=== PATIENT | female | born 1940 | race Two or more races ===

== ENCOUNTER 2020-09-19 04:15 | Inpatient (IN) | payer BC ==
[~2020-09-19] VITALS: Ht 160 cm; Wt 79.4 kg
[2020-09-19] VITALS (22 sets, daily range): BP systolic 59–178; BP diastolic 35–95
[2020-09-19] MEDS ORDERED: Enoxaparin 100mg Inj SUBQ ONE (04:30)
[2020-09-19] MEDS ORDERED: cefTRIAXone 1 GM in NS 55 ML IV ONE (04:30)
[2020-09-19] MEDS ORDERED: dexAMETHasone 10mg/ml Inj IV ONE (04:30)
[2020-09-19] MEDS ORDERED: Albuterol ud Inhalation HHN ONE (04:30)
[2020-09-19] MEDS ORDERED: Azithromycin 500 MG in NS 275 ML IVPB ONE (04:30)
--- NOTE | 2020-09-19 04:30 | Emergency Room Report ---
History of Present Illness General Chief Complaint: Dyspnea/Respdistress Source: Patient, Medical Record, EMS Present Illness HPI This is a 80-year-old female with history of high blood pressure. She was recently diagnosed with Covid last week. She had Covid symptom for about 2 wee ks. She was admitted to [facility] with Covid pneumonia and pulse oxing at 86% on room air. 3 weeks prior, she had a fall and sustained a trimalleolar right ankle fracture. She presents tonight with chief complaint of shortness of breath. At the long term, she had respiratory distress and oxygenation was 71% on room air. 911 was called. She was placed on oxygen and sent here. Patient still has coughing. past subjective fever and chills. No chest pain. Worse with exertion. Better with rest. Allergies: Coded Allergies: No Known Allergies (Unverified , 09/19/20) COVID-19 Screening Contact w/high risk pt: Yes Experienced COVID-19 symptoms?: Yes COVID-19 Testing performed RECORDS ASSISTANT: Yes COVID-19 Screening: Positive COVID-19 COVID-19 Testing Source[facility] Patient History Past Medical History: see triage record, old chart reviewed, HTN Past Surgical History: other Pertinent Family History: none Social History: Denies: smoking Now: No Immunizations: other Reviewed Nursing Documentation: PMH: Agreed; PSxH: Agreed Review of Systems Constitutional: Reports: chills, fever Eye: Denies: eye pain, blurred vision ENT: Denies: ear pain, nose congestion, throat swelling Respiratory: Reports: cough, shortness of breath Cardiovascular: Denies: chest pain, palpitations Gastrointestinal: Denies: abdominal pain, diarrhea, nausea, vomiting Musculoskeletal: Denies: back pain, joint pain Skin: Denies: rash Neurological: Denies: headache, numbness Endocrine: Denies: increased thirst, increased urine Hematologic/Lymphatic: Denies: easy bruising All Other Systems: negative except mentioned in HPI Physical Exam Vital Signs Date Time Temp Pulse Resp B/P (MAP) Pulse Ox O2 Delivery O2 Flow Rate FiO2 09/19/20 04:18 100 20 72/32 (45) 96 Nasal Cannula 4.0 Vitals with hypoxia and hypotension. Repeat blood pressure is 92/49 Sp02 EP Interpretation: reviewed, abnormal General Appearance: alert, moderate distress, obese Head: normocephalic, atraumatic Eyes: bilateral eye PERRL, bilateral eye EOMI ENT: hearing grossly normal, normal pharynx Neck: full range of motion, supple, no meningismus Respiratory: chest non-tender, respiratory distress, decreased breath sounds, accessory muscle use, crackles Cardiovascular #1: regular rate, rhythm, no murmur Gastrointestinal: normal bowel sounds, non tender, no mass, no organomegaly, no bruit, non-distended Musculoskeletal: back normal, other - Right ankle in a splint Psychiatric: mood/affect normal Procedures Critical Care Time Critical Care Time Critical care is mandated in this patient who presented with shock from Covid pneumonia.. Patient require my urgent intervention to attenuate the risks of metabolic collapse which may lead to cardiovascular collapse and . Critical care time is 35 minutes excluding any reportable procedure. Critical care time included evaluation, multiple reevaluation, looking at old charts, interpreting laboratory and diagnostic data, discussing case with patient and family and consultants, and charting. Central Line Central Line : Consent: Verbal Central Line Lumen: triple Maximal Sterile Barrier Tech: yes cap, yes mask, yes sterile gown, yes sterile gloves, yes large sterile sheet, yes hand hygiene, yes chlorhexidine prep Central Line Postion: femoral (R) Anesthesia: Lidocaine cc's of anesthesia: 10 US Guided Line?: No Complications: none Central Line Post Position: sutured, good blood return Attempts: One Patient Tolerated: Well Complications: None Medical Decision Making Diagnostic Impression: Primary Impression: Septic shock Additional Impressions: Pneumonia due to COVID-19 virus Acute respiratory failure with hypoxia Anemia Qualified Codes: D64.9 - Anemia, unspecified Hyperglycemia due to type 2 diabetes mellitus Qualified Codes: E11.65 - Type 2 diabetes mellitus with hyperglycemia ER Course This patient presents with respirator stress and was in septic shock secondary to her Covid pneumonia. Patient does not require intubation. Oxygenation is 100% on nonrebreather. Pressors initiated. Patient will be admitted. Prognosis poor. I contacted Dr. Spencer for admission. EKG Diagnostic Results Troponin ordered: Yes Rate: tachycardiac Rhythm: NSR ST Segments: other - NSST changes ASA given to the pt in ED: Yes Rhythm Strip Diag. Results EP Interpretation: yes Rate: 91 Rhythm: NSR, no PVC's, no ectopy Chest X-Ray Diagnostic Results Chest X-Ray Diagnostic Results : Chest X-Ray Ordered: Yes # of Views/Limited/Complete: 1 View Indication: Shortness of Breath EP Interpretation: Yes Interpretation: no effusion, no pneumothorax, other - b/l interstitial infiltrates Impression: Other - b/l infiltrates Electronically Signed by: Lucho Reyes MD Last Vital Signs Date Time Temp Pulse Resp B/P (MAP) Pulse Ox O2 Delivery O2 Flow Rate FiO2 09/19/20 04:18 100 20 72/32 (45) 96 Nasal Cannula 4.0 Status: improved Disposition: ADMITTED INPATIENT Condition: Critical Lucho Reyes MD Sep 19, 2020 04:30
[2020-09-19] MEDS ORDERED: LEVOFLOXAC IV (04:37)
[2020-09-19] MEDS ORDERED: ZOFRAN4 M1 INJ (04:38)
[2020-09-19] MEDS ORDERED: ALBUTEROL2.5 MG/3 M INH (04:39)
[2020-09-19] MEDS ORDERED: GUAIFENESIN DM118 M1 ORAL (04:40)
--- NOTE | 2020-09-19 04:40 | NUR ---
ED Nurse Note: Pt brought in by ambulance RA 58 from [facility]. Per EMS she was hypoxic on RA but SPO2 92% on 4L NC. Her BP in the field was 70/40. On assement she is axox4, pale, moist, grunting with respirations. SPO2 was 92% on NC and simple mask so started her 15L NRB. SPO2 100%. Pt had 500mL bolus in the field. She is hypotensive the lowest 56/25. Labs sent, ekg done, breathign trx given by RT, fluid bolus administered. Addendum: 09/19/20 at 0646 by GUSTABO Pt has a plaster cast on her right ankle from a previous injury. cathode maker intact, no numbness, tingling or swelling noted.
[2020-09-19] MEDS ORDERED: LOSARTAN POTASS50 MG ORAL (04:41)
[2020-09-19] MEDS ORDERED: ACETAMINOPHEN500 M5 ORAL (04:42)
[2020-09-19 04:53] LABS: HEMATOCRIT 35.6 % (37.0-47.0); HEMOGLOBIN 11.9 G/DL (12.0-16.0); MEAN CORPUSCULAR VOLUME 91 FL (80-99); PLATELET COUNT 162 K/UL (150-450); RED BLOOD COUNT 3.92 M/UL (4.20-5.40); WHITE BLOOD COUNT 12.5 K/UL (4.8-10.8)
[2020-09-19] MEDS ORDERED: Lidocaine 1% MPF 10mg/ml 5ml ONE (05:09)
[2020-09-19] MEDS ORDERED: Lidocaine 1% Plain 30 ml INJ ONE ×2 (05:10→06:15)
[2020-09-19 05:12] LABS: CALCIUM 8.2 MG/DL (8.5-10.1); CREATININE 1.3 MG/DL (0.55-1.30); POTASSIUM 3.5 MMOL/L (3.5-5.1)
[2020-09-19 05:18] LABS: INR 1.5 (0.9-1.1); PARTIAL THROMBOPLASTIN TIME 33 SEC (23-33)
[2020-09-19] MEDS ORDERED: Levophed 4mg/4mL Inj IV ONE (05:25)
[2020-09-19 05:26] LABS: ALBUMIN 2.4 G/DL (3.4-5.0); ALBUMIN/GLOBULIN RATIO 0.6 (1.0-2.7); BILIRUBIN,TOTAL 0.5 MG/DL (0.2-1.0); CKMB 1.1 NG/ML (0.0-3.6)
--- NOTE | 2020-09-19 05:35 | Diagnostic Imaging Report ---
EXAM: XR Chest, 1 View CLINICAL HISTORY: TRAUMA TECHNIQUE: Frontal view of the chest. COMPARISON: No relevant prior studies available. FINDINGS: Lungs: Patchy airspace opacities bilaterally are present in a peripheral predominant distribution. Pleural space: Unremarkable. No pneumothorax. Heart: Unremarkable. No cardiomegaly. Mediastinum: Unremarkable. Bones/joints: Unremarkable. IMPRESSION: Findings of atypical pneumonia. No acute traumatic findings shown by x- ray.
[2020-09-19] MEDS ORDERED: Aspirin Baby 81mg ORAL ONE (05:45)
--- NOTE | 2020-09-19 05:51 | Diagnostic Imaging Report ---
EXAM: XR Right Ankle Complete, 3 or More Views CLINICAL HISTORY: TRAUMA TECHNIQUE: Frontal, lateral and oblique views of the right ankle. COMPARISON: No relevant prior studies available. FINDINGS: Bones/joints: Acute mildly displaced posterior malleolar fracture. Acute minimally displaced lateral malleolus fracture. No ankle mortise widening. No dislocation. Soft tissues: Mild soft tissue swelling. IMPRESSION: 1. Acute mildly displaced posterior malleolar fracture. 2. Acute minimally displaced lateral malleolus fracture.
--- NOTE | 2020-09-19 06:11 | Emergency Room Report ---
Sepsis Event Note Evaluation Current Stage of Sepsis: Septic Shock Possible Source: Pulmonary Focused Exam Allergies: Coded Allergies: No Known Allergies (Unverified , 09/19/20) Date Exam Occurred: Sep 19, 2020 Time Exam Occurred: 06:11 Laboratory Studies Laboratory Tests Test 09/19/20 04:26 White Blood Count 12.5 K/UL (4.8-10.8) H Red Blood Count 3.92 M/UL (4.20-5.40) L Hemoglobin 11.9 G/DL (12.0-16.0) L Hematocrit 35.6 % (37.0-47.0) L Mean Corpuscular Volume 91 FL (80-99) Mean Corpuscular Hemoglobin 30.3 PG (27.0-31.0) Mean Corpuscular Hemoglobin Concent 33.3 G/DL (32.0-36.0) Red Cell Distribution Width 12.0 % (11.6-14.8) Platelet Count 162 K/UL (150-450) Mean Platelet Volume 6.9 FL (6.5-10.1) Neutrophils (%) (Auto) % (45.0-75.0) Lymphocytes (%) (Auto) % (20.0-45.0) Monocytes (%) (Auto) % (1.0-10.0) Eosinophils (%) (Auto) % (0.0-3.0) Basophils (%) (Auto) % (0.0-2.0) Differential Total Cells Counted 100 Neutrophils % (Manual) 89 % (45-75) H Lymphocytes % (Manual) 8 % (20-45) L Monocytes % (Manual) 3 % (1-10) Eosinophils % (Manual) 0 % (0-3) Basophils % (Manual) 0 % (0-2) Band Neutrophils 0 % (0-8) Platelet Estimate Adequate Platelet Morphology Normal Red Blood Cell Morphology Normal Prothrombin Time 16.5 SEC (9.30-11.50) H Prothromb Time International Ratio 1.5 (0.9-1.1) H Activated Partial Thromboplast Time 33 SEC (23-33) D-Dimer > 35.20 mg/L FEU Sodium Level 137 MMOL/L (136-145) Potassium Level 3.5 MMOL/L (3.5-5.1) Chloride Level 102 MMOL/L (98-107) Carbon Dioxide Level 17 MMOL/L (21-32) L Anion Gap 18 mmol/L (5-15) H Blood Urea Nitrogen 14 mg/dL (7-18) Creatinine 1.3 MG/DL (0.55-1.30) Estimat Glomerular Filtration Rate 39.6 mL/min (>60) Glucose Level 283 MG/DL (74-106) H Lactic Acid Level 6.60 mmol/L (0.4-2.0) H Calcium Level 8.2 MG/DL (8.5-10.1) L Ferritin 491 NG/ML (8-388) H Total Bilirubin 0.5 MG/DL (0.2-1.0) Aspartate Amino Transf (AST/SGOT) 57 U/L (15-37) H Alanine Aminotransferase (ALT/SGPT) 38 U/L (12-78) Alkaline Phosphatase 69 U/L (46-116) Lactate Dehydrogenase 323 U/L (81-234) H Total Creatine Kinase 39 U/L (26-308) Creatine Kinase MB 1.1 NG/ML (0.0-3.6) Creatine Kinase MB Relative Index 2.8 Troponin I 0.239 ng/mL (0.000-0.056) C-Reactive Protein, Quantitative 2.6 mg/dL (0.00-0.90) H Pro-B-Type Natriuretic Peptide 540 pg/mL (0-125) H Total Protein 6.6 G/DL (6.4-8.2) Albumin 2.4 G/DL (3.4-5.0) L Globulin 4.2 g/dL Albumin/Globulin Ratio 0.6 (1.0-2.7) L Lipase 230 U/L (73-393) Vital Signs Last 24 Hour Vital Signs Date Time Temp Pulse Resp B/P (MAP) Pulse Ox O2 Delivery O2 Flow Rate FiO2 09/19/20 05:42 72/52 09/19/20 04:47 97.6 104 20 96/45 100 Non-Rebreather 15.0 09/19/20 04:40 95 26 Non-Rebreather 15.0 09/19/20 04:34 99 22 100 Non-Rebreather 15.0 100 96 24 100 09/19/20 04:18 100 20 72/32 (45) 96 Nasal Cannula 4.0 Respiratory Exam: Rhonchi Cardiovascular Exam: RRR Capillary Refill: Less Than 2 Seconds Peripheral Pulse: Weak Pulse Location: Femoral Skin Exam: Pallor Lucho Reyes MD Sep 19, 2020 06:11
--- NOTE | 2020-09-19 06:15 | NUR ---
ED Nurse Note: Dt pt's persistent hypotension, ER MD placed a tripel lumen central line in the right femoral groin. All lines are patent and can draw blood. Pt gave informed consent. Time out was preformed, steril technique was maintained. Pt now has vassopresser and BP is normotensive.
[2020-09-19 06:27] LABS: APPEARANCE,URINE SLIGHTLY CLOUDY; BILIRUBIN, URINE NEGATIVE (NEGATIVE); COLOR,URINE PALE YELLOW; GLUCOSE, URINE (UA) 1+ (NEGATIVE); KETONES,URINE NEGATIVE (NEGATIVE); LEUKOCYTE ESTERASE ,URINE 1+ (NEGATIVE); NITRITE,URINE NEGATIVE (NEGATIVE); PH,URINE 6.5 (4.5-8.0); PROTEIN,URINE 3+ (NEGATIVE); UROBILINOGEN,URINE NORMAL MG/DL (0.0-1.0)
--- NOTE | 2020-09-19 07:35 | NUR ---
ED Nurse Note: Pt BP 112/78. HR 90. Pt still has grungting on respirations. O2 sat 100% NRB.
[2020-09-19] MEDS ORDERED: Vancomycin 1.5gm/300ml Premix IVPB ONE (09:00)
--- NOTE | 2020-09-19 09:00 | Diagnostic Imaging Report ---
EXAM: US Duplex Bilateral Lower Extremities Veins CLINICAL HISTORY: DVT TECHNIQUE: Real-time duplex ultrasound scan of the bilateral lower extremity veins integrating B-mode two-dimensional vascular structure, Doppler spectral analysis, color flow Doppler imaging and compression. COMPARISON: No relevant prior studies available. FINDINGS: Right deep veins: No DVT in the right common femoral, femoral, proximal deep femoral or popliteal veins. The veins demonstrate normal color flow, are normally compressible, with normal phasic flow and/or augmentation response. The right posterior tibial and anterior tibial veins were not visualized due to overlying cast. Right superficial veins: No thrombus in the visualized right great saphenous vein. ----- Left deep veins: No DVT in the left common femoral, femoral, proximal deep femoral or popliteal veins. The veins demonstrate normal color flow, are normally compressible, with normal phasic flow and/or augmentation response. Left superficial veins: No thrombus in the visualized left great saphenous vein. IMPRESSION: No deep venous thrombosis of the bilateral lower extremities. The right posterior tibial and anterior tibial veins were not visualized due to overlying cast.
--- NOTE | 2020-09-19 09:44 | NUR ---
ED Nurse Note: Belongings list completed. Pt is 2&ox4, states she has no pain.
[2020-09-19] MEDS: Piperacillin/Tazobactam 3.375 GM in NS 110 ML IVPB SCH ×2 (10:14→22:55)
--- NOTE | 2020-09-19 11:10 | NUR ---
RESPIRATORY NOTE: POST ABG RESULT PT'S FIO2 WAS TITRATED FROM 100% NBR MASK TO 10LPM/50% VENTURI MASK. PT TOLERATING WELL. CURRENT SPO2 IS 96%. RN NOTIFIED.
--- NOTE | 2020-09-19 11:12 | NUR ---
ED Nurse Note: Pt placed 10L Venturi mask per RT Tanya O2 95%.
--- NOTE | 2020-09-19 13:29 | Consultation ---
DATE OF CONSULTATION: 09/19/2020 INFECTIOUS DISEASE CONSULTATION This consult is for coverage of Dr. Fuentes. CONSULTING PHYSICIAN: Bonilla Whelan MD. REASON FOR CONSULT: COVID-19 pneumonia and septic shock. HISTORY OF PRESENT ILLNESS: This is a 80-year-old female admitted today from a [place] [facility] facility. The patient was transferred to hospital with chest pain, shortness of breath, had COVID symptoms for two weeks according to ER doctor, had decrease in pulse oximetry and hypotension, elevation in troponin. The patient was put on Venturi mask. PAST MEDICAL HISTORY: Hypertension and right ankle fracture three weeks ago, this was trimalleolar fracture. ALLERGIES: No known drug allergies. MEDICATIONS: Getting vancomycin, dexamethasone, enoxaparin, Zosyn, Protonix, Zofran, Tylenol, Levophed. SOCIAL HISTORY: . REVIEW OF SYSTEMS: The patient is drowsy and not a source of history. PHYSICAL EXAMINATION: VITAL SIGNS: Temperature 98.2, pulse 87, blood pressure 118/79. GENERAL APPEARANCE: Seems to be obese. HEAD AND NECK: Getting oxygen by Venturi mask. HEART: Normal rate. LUNGS: Clear. ABDOMEN: Soft and nontender. EXTREMITIES: She has right leg is in the cast, no edema. LABORATORY DATA: Lactic acid is 3.8. Sodium 137, potassium 3.5, chloride 102, bicarb 17, BUN 14, creatinine 1.3, glucose 283. Troponin 0.239. WBC 12.5, hemoglobin 11.9, hematocrit 35.6, platelets 162. Chest x-ray, atypical pneumonia. Right ankle x-ray showed acute mildly displaced posterior malleolar fracture, acute minimally displaced lateral malleolus fracture. Venous duplex was negative for DVT. IMPRESSION: Sepsis with septic shock, has COVID-19 disease, has hypoxemia, hypertension, right ankle fracture, has diabetes mellitus with hyperglycemia, acidosis, elevation in troponin, obesity. RECOMMENDATION: Continue with current antibiotics, vancomycin, Zosyn, and dexamethasone. Case was discussed with the pharmacy. Remdesivir was not approved because of prolonged symptoms more than 10 days. At the end of my exam, I thank the primary doctor for involving me in the care of this patient. Bonilla Whelan M.D. DR: MAURICIO JOB#: [id number] CC: ERNESTO
--- NOTE | 2020-09-19 13:53 | NUR ---
ED Nurse Note: Pt transferred to hospital bed. No acute distress. A&ox4.
[2020-09-19] MEDS ORDERED: Albuterol 90mcg Inhaler 8gm INH PRN (14:15)
--- NOTE | 2020-09-19 14:20 | Pulmonology Progress Note ---
Subjective ROS Limited/Unobtainable: No Allergies: Coded Allergies: No Known Allergies (Unverified , 09/19/20) Objective Last 24 Hour Vital Signs Date Time Temp Pulse Resp B/P (MAP) Pulse Ox O2 Delivery O2 Flow Rate FiO2 09/19/20 13:52 98.2 89 20 118/90 99 Venturi Mask 10.0 100 09/19/20 11:32 122/93 09/19/20 11:31 98.2 85 21 117/76 98 Venturi Mask 10.0 09/19/20 10:14 114/81 09/19/20 09:45 118/79 09/19/20 09:43 98.2 87 24 115/58 100 Non-Rebreather 15.0 100 09/19/20 08:59 108/87 09/19/20 08:30 98.2 90 24 118/57 99 Non-Rebreather 15.0 100 09/19/20 07:33 112/78 09/19/20 06:43 106/60 09/19/20 06:09 89/59 09/19/20 06:00 98.2 94 24 102/54 100 Non-Rebreather 15.0 100 09/19/20 05:45 95 24 98/35 99 Non-Rebreather 15.0 09/19/20 05:42 72/52 09/19/20 05:15 97.6 98 24 72/44 100 Non-Rebreather 15.0 100 09/19/20 05:00 95 22 59/37 100 Non-Rebreather 15.0 09/19/20 04:47 97.6 104 20 96/45 100 Non-Rebreather 15.0 09/19/20 04:40 95 26 Non-Rebreather 15.0 09/19/20 04:34 99 22 100 Non-Rebreather 15.0 100 96 24 100 09/19/20 04:18 100 20 72/32 (45) 96 Nasal Cannula 4.0 Intake and Output 09/18/20 09/19/20 19:00 07:00 Intake Total 1305 ml Balance 1305 ml Intake IV Total 1305 ml Laboratory Tests 09/19/20 04:26: White Blood Count 12.5H, Red Blood Count 3.92L, Hemoglobin 11.9L, Hematocrit 35.6L, Mean Corpuscular Volume 91, Mean Corpuscular Hemoglobin 30.3, Mean Corpuscular Hemoglobin Concent 33.3, Red Cell Distribution Width 12.0, Platelet Count 162, Mean Platelet Volume 6.9, Neutrophils (%) (Auto) , Lymphocytes (%) (Auto) , Monocytes (%) (Auto) , Eosinophils (%) (Auto) , Basophils (%) (Auto) , Differential Total Cells Counted 100, Neutrophils % (Manual) 89H, Lymphocytes % (Manual) 8L, Monocytes % (Manual) 3, Eosinophils % (Manual) 0, Basophils % (Manual) 0, Band Neutrophils 0, Platelet Estimate Adequate, Platelet Morphology Normal, Red Blood Cell Morphology Normal, Prothrombin Time 16.5H, Prothromb Time International Ratio 1.5H, Activated Partial Thromboplast Time 33, D-Dimer > 35.20H, Sodium Level 137, Potassium Level 3.5, Chloride Level 102, Carbon Dioxide Level 17L, Anion Gap 18H, Blood Urea Nitrogen 14, Creatinine 1.3, Estimat Glomerular Filtration Rate 39.6, Glucose Level 283H, Lactic Acid Level 6.60H, Calcium Level 8.2L, Ferritin 491H, Total Bilirubin 0.5, Aspartate Amino Transf (AST/SGOT) 57H, Alanine Aminotransferase (ALT/SGPT) 38, Alkaline Phosphatase 69, Lactate Dehydrogenase 323H, Total Creatine Kinase 39, Creatine Kinase MB 1.1, Creatine Kinase MB Relative Index 2.8, Troponin I 0.239H, C- Reactive Protein, Quantitative 2.6H, Pro-B-Type Natriuretic Peptide 540H, Total Protein 6.6, Albumin 2.4L, Globulin 4.2, Albumin/Globulin Ratio 0.6L, Lipase 230 09/19/20 05:55: Urine Color Pale yellow, Urine Appearance Slightly cloudy, Urine pH 6.5, Urine Specific Heth 1.010, Urine Protein 3+H, Urine Glucose (UA) 1+H, Urine Ketones Negative, Urine Blood 2+H, Urine Nitrite Negative, Urine Bilirubin Negative, Urine Urobilinogen Normal, Urine Leukocyte Esterase 1+H, Urine RBC 2-4H, Urine WBC 0-2, Urine Squamous Epithelial Cells Occasional, Urine Bacteria Few, Urine Hyaline Casts 2-4H 09/19/20 06:40: Lactic Acid Level 3.80H 09/19/20 10:19: Arterial Blood pH 7.380, Arterial Blood Partial Pressure CO2 28.8L, Arterial Blood Partial Pressure O2 301.0H, Arterial Blood HCO3 16.7*L, Arterial Blood Oxygen Saturation 99.2, Arterial Blood Base Excess -7.1L, Huey Test Positive Current Medications Medications (Trade) Dose Ordered Sig/Aura Route PRN Reason Start Time Stop Time Status Last Admin Dose Admin Acetaminophen (Tylenol) 650 mg Q4H PRN ORAL Mild Pain (Pain Scale 1-3) 09/19/20 08:15 10/19/20 08:14 Acetaminophen (Tylenol) 650 mg Q4H PRN ORAL Temp >100.5 09/19/20 08:45 10/19/20 08:44 Dexamethasone Sodium Phosphate (Decadron 4mg/ml vial) 6 mg DAILY IVP 09/20/20 09:00 09/28/20 09:01 Enoxaparin Sodium (Lovenox) 40 mg Q12HR SUBQ 09/19/20 21:00 12/18/20 20:59 Norepinephrine Bitartrate 8 mg/ Sodium Chloride 250 ml @ 0 mls/hr Q24H IV 09/19/20 05:45 09/22/20 05:44 09/19/20 05:42 Ondansetron HCl (Zofran) 4 mg Q6H PRN ORAL Nausea & Vomiting 09/19/20 08:15 10/19/20 08:14 Pantoprazole (Protonix) 40 mg DAILY ORAL 09/19/20 09:00 10/19/20 08:59 09/19/20 08:59 Piperacillin Sod/ Tazobactam Sod 3.375 gm/Sodium Chloride 110 ml @ 27.5 mls/hr EVERY 8 HOURS IVPB 09/19/20 10:00 09/24/20 09:59 09/19/20 10:14 Vancomycin HCl (Vanco pharmacy to dose) 1 ea DAILY PRN MISC Per rx protocol 09/19/20 08:15 10/19/20 08:14 Vancomycin HCl 1 gm/Dextrose 275 ml @ 183.708 mls/hr Q24H IVPB 09/20/20 10:00 09/25/20 09:59 Assessment/Plan Assessment/Plan Pulmonary Consultation SUBJECTIVE: HPI: Patient is a 80-year-old woman with past history of Hypertension, recent right ankle fracture admitted with Covid Pneumonia. She complained of chest pain, shortness of breath, worsening over two weeks,noted to be hypoxic and hypotensive, centralline placed in the ED, elevation in troponin noted. Past Medical History: Hypertension and trimalleilar right ankle fracture three weeks ago. Allergies: No known drug allergies. Medications noted SH: NC, . FH: NC ROS: Negative aside from above,poor historian OBJECTIVE: Vital Signs: Noted PE: GENERAL: Comfortable on FMO2, obese. 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 Sodium 137, potassium 3.5, chloride 102, bicarb 17, BUN 14, creatinine 1.3, glucose 283. Troponin 0.239. WBC 12.5, hemoglobin 11.9, hematocrit 35.6, platelets 162. Imaging: Chest x-ray:Bilateralpatchy infiltartes. Right ankle x-ray showed acute mildly displaced posterior malleolar fracture, acute minimally displaced lateral malleolus fracture. Venous duplex was negative for DVT. Impression: Covid 19 Pneumonia Hypoxic Respiratory Failure Possible sepsis Elevated Troponin Diabetes Previous Hypertension Recent right ankle fracture, Obesity Plan: Antibiotics/AntiviralsperID Remdesivir was not indicated per ID Dexamethazone O2PRN BD IVF PRN PPX ASSOCIATE MEDICAL DIRECTOR Medications Monitor labs Gilberto Aragon MD Sep 19, 2020 14:20
[2020-09-19] MEDS ORDERED: Solu-MEDROL 125mg Inj ONE (14:40)
--- NOTE | 2020-09-19 15:48 | NUR ---
ED Nurse Note: Pt lying in bed. No complaints or distress at this time. She is alert and orientedx4.
--- NOTE | 2020-09-19 18:10 | NUR ---
ED Nurse Note: New Levophed bottle initiated. Pt BP 123/82. Pt is alert and ox4.
--- NOTE | 2020-09-19 19:12 | NUR ---
HAND-OFF: Report given to Grace MEDEL.
--- NOTE | 2020-09-19 20:00 | NUR ---
ED Nurse Note: pt received from GIANFRANCO Simons in bed with venturi mask on, oxygen saturation is within normal limits. pt continues to have levophed infusing into femoral central line site. no acute distress is noted at this time. pt is beninese speaking but alert and awake, able to follow commands and make her needs known. will continue to monitor pt and prepare for admission.
[2020-09-19] MEDS: Enoxaparin 40mg Inj SUBQ SCH (21:10)
--- NOTE | 2020-09-19 21:34 | NUR ---
ED Nurse Note: report given to GIANFRANCO Walls
--- NOTE | 2020-09-19 22:00 | NUR ---
ED Nurse Note: pt transported to ICU per hospital FRANKLIN ji
--- NOTE | 2020-09-19 22:10 | NUR ---
NURSE NOTES: RECEIVED THE PATIENT FROM ER NURSE VIA HOSPITAL BED. PATIENT ALERT, ORIENTED X3, DENIED PAIN, ON VENTURI MASK 10LPM, RESPIRATION REGULAR, DENIED SOB, O2 SATURATION 96% NOTED, ABDOMEN SOFT, NO N/V STATUS, TLC TO RIGHT FEMORAL, PPL TO LEFT FA AND RIGHT AC, INTACT AND PATENT, ONGOING LEVOPHED 10MCG/MIN VIA RIGHT FEMORAL TLC, PROVIDED CALL LIGHT WITHIN REACH, MADE LOWER BED POSITION, ON BED ALARM AND LOCKED, WILL CONTINUE TO MONITOR.
[2020-09-20] VITALS (31 sets, daily range): BP systolic 101–152; BP diastolic 47–73
--- NOTE | 2020-09-20 01:00 | NUR ---
NURSE NOTES: PATIENT AWOKE, DENIED PAIN OR SOB, ONGOING LEVOPHED 4MCG/MIN VIA TLC, WILL CONTINUE TO MONITOR.
--- NOTE | 2020-09-20 03:30 | NUR ---
NURSE NOTES: PATIENT ASLEEP, VSS, ONGOING LEVOPHED 2MCG/MIN, WILL CONTINUE TO MONITOR.
--- NOTE | 2020-09-20 05:45 | NUR ---
NURSE NOTES: BP 125/67 MMHG, TURNED LEVOPHED DRIP OFF AT THIS TIME, PATIENT ALERT, ORIENTED, DENIED RIGHT LEG NUMBNESS OR TINGLING, ABLE TO MOVE TOES, WARM AND DRIED SKIN STATUS, WILL CONTINUE PLAN OF CARE.
[2020-09-20] MEDS: Piperacillin/Tazobactam 3.375 GM in NS 110 ML IVPB SCH ×3 (05:48→21:32)
--- NOTE | 2020-09-20 07:30 | NUR ---
NURSE HAND-OFF REPORT: Latest Vital Signs: Temperature 97.4 , Pulse 85 , B/P 119 /55 , Respiratory Rate 27 , O2 SAT 89 , Venturi Mask, O2 Flow Rate 10.0 . Vital Sign Comment: EKG Rhythm: Sinus Rhythm Rhythm change?: N MD Notified?: - MD Response: Latest Lozada Fall Score: 60 Fall Risk: High Risk Safety Measures: Call light , Bed Alarm Zone 1, Side Rails Side Rails x3, Bed position Low and Locked. Fall Precautions: Yellow Socks Door Sign Patient Fall Education Report given to GIANFRANCO SEXTON.
--- NOTE | 2020-09-20 07:31 | NUR ---
NURSE NOTES: Report received from Titi Ortega RN. Patient is alert and oriented x3-4. Mainly Kiswahili speaking with little Vietnamese for simple communication. 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 On Venturi 10L. O2 sat 98-99%. Dry periodic cough noted. Kept NPO as ordered. Voids on bedpan. Right lower foot splint noted for previous ankle fx. Right femoral TLC, right AC G20, and left FA G 20 patent and asymptomatic. Off Levophed at 0545 as per production shift supervisor. Bed in lowest position. Side rails x 3. Call light within reach. Will resume plan of care.
--- NOTE | 2020-09-20 07:53 | General Progress Note ---
Subjective ROS Limited/Unobtainable: No Constitutional: Reports: malaise, weakness HEENT: Reports: no symptoms Cardiovascular: Reports: no symptoms Respiratory: Reports: cough, shortness of breath Gastrointestinal/Abdominal: Reports: no symptoms Genitourinary: Reports: no symptoms Neurologic/Psychiatric: Reports: no symptoms Endocrine: Reports: no symptoms Hematologic/Lymphatic: Reports: no symptoms Allergies: Coded Allergies: No Known Allergies (Unverified , 09/19/20) All Systems: reviewed and negative except above Subjective no events. bp improved. off pressors. remains on venti mask. more comfortable. Objective Last 24 Hour Vital Signs Date Time Temp Pulse Resp B/P (MAP) Pulse Ox O2 Delivery O2 Flow Rate FiO2 09/20/20 07:00 85 27 119/55 (76) 89 09/20/20 06:00 81 28 101/60 (74) 97 09/20/20 05:45 75 9 125/67 (86) 99 09/20/20 05:45 125/67 09/20/20 05:30 74 20 118/58 (78) 99 09/20/20 05:00 75 14 133/65 (87) 99 09/20/20 05:00 133/65 09/20/20 04:30 76 23 141/64 (89) 100 09/20/20 04:00 77 09/20/20 04:00 135/62 09/20/20 04:00 Venturi Mask 10.0 09/20/20 04:00 97.4 77 22 135/62 (86) 99 09/20/20 03:30 77 22 130/61 (84) 95 09/20/20 03:00 132/60 09/20/20 03:00 83 23 132/60 (84) 98 09/20/20 02:30 77 26 138/62 (87) 98 09/20/20 02:00 143/73 09/20/20 02:00 81 24 143/73 (96) 100 09/20/20 01:30 77 21 144/66 (92) 98 09/20/20 01:00 145/66 09/20/20 01:00 76 23 145/66 (92) 99 09/20/20 00:30 82 22 126/65 (85) 99 09/20/20 00:00 152/57 09/20/20 00:00 Venturi Mask 10.0 09/20/20 00:00 98.0 80 30 152/57 (88) 90 09/20/20 00:00 95 Venturi Mask 40 09/19/20 23:45 80 21 145/70 (95) 95 09/19/20 23:30 79 18 149/63 (91) 94 09/19/20 23:23 80 09/19/20 23:15 76 26 137/64 (88) 95 09/19/20 23:06 76 25 163/70 (101) 96 09/19/20 23:00 79 26 143/66 (91) 96 09/19/20 23:00 143/66 09/19/20 22:45 80 20 152/66 (94) 94 09/19/20 22:45 97.5 95 20 152/66 (94) 94 09/19/20 22:30 82 24 154/66 (95) 95 09/19/20 22:30 154/66 09/19/20 22:26 87 09/19/20 22:26 Venturi Mask 10.0 09/19/20 22:23 86 178/83 09/19/20 22:23 80 24 112/95 (101) 97 09/19/20 22:21 87 09/19/20 22:15 163/65 09/19/20 22:14 84 28 163/65 (97) 96 09/19/20 21:10 180/83 09/19/20 20:18 78 27 178/83 98 Venturi Mask 10.0 50 09/19/20 20:18 178/83 09/19/20 18:12 98.2 84 16 136/86 97 Venturi Mask 10.0 50 09/19/20 17:55 142/85 09/19/20 16:53 145/99 09/19/20 16:52 98.2 88 17 134/74 99 Venturi Mask 10.0 50 09/19/20 15:47 98.2 83 17 130/76 100 Venturi Mask 10.0 50 09/19/20 15:45 126/73 09/19/20 13:52 98.2 89 20 118/90 99 Venturi Mask 10.0 100 09/19/20 13:30 115/76 09/19/20 11:32 122/93 09/19/20 11:31 98.2 85 21 117/76 98 Venturi Mask 10.0 09/19/20 10:14 114/81 09/19/20 09:45 118/79 09/19/20 09:43 98.2 87 24 115/58 100 Non-Rebreather 15.0 100 09/19/20 08:59 108/87 09/19/20 08:30 98.2 90 24 118/57 99 Non-Rebreather 15.0 100 Intake and Output 09/19/20 09/20/20 19:00 07:00 Intake Total 201.435 ml Balance 201.435 ml Intake IV Total 201.435 ml # Voids 1 2 Laboratory Tests 09/19/20 10:19: Arterial Blood pH 7.380, Arterial Blood Partial Pressure CO2 28.8L, Arterial Blood Partial Pressure O2 301.0H, Arterial Blood HCO3 16.7*L, Arterial Blood Oxygen Saturation 99.2, Arterial Blood Base Excess -7.1L, Huey Test Positive 09/20/20 00:40: Lactic Acid Level 2.30H 09/20/20 06:46: Lactic Acid Level [Pending], White Blood Count [Pending], Red Blood Count [Pending], Hemoglobin [Pending], Hematocrit [Pending], Mean Corpuscular Volume [Pending], Mean Corpuscular Hemoglobin [Pending], Mean Corpuscular Hemoglobin Concent [Pending], Red Cell Distribution Width [Pending], Platelet Count [Pending], Mean Platelet Volume [Pending], Neutrophils (%) (Auto) [Pending], Lymphocytes (%) (Auto) [Pending], Monocytes (%) (Auto) [Pending], Eosinophils (%) (Auto) [Pending], Basophils (%) (Auto) [Pending], Sodium Level [Pending], Potassium Level [Pending], Chloride Level [Pending], Carbon Dioxide Level [Pending], Blood Urea Nitrogen [Pending], Creatinine [Pending], Estimat Glomerular Filtration Rate [Pending], Glucose Level [Pending], Calcium Level [Pending], Total Bilirubin [Pending], Aspartate Amino Transf (AST/SGOT) [Pending ], Alanine Aminotransferase (ALT/SGPT) [Pending], Alkaline Phosphatase [Pending], Troponin I [Pending], Pro-B-Type Natriuretic Peptide [Pending], Total Protein [Pending], Albumin [Pending], Globulin [Pending] Height (Feet): 5 Height (Inches): 3.00 Weight (Pounds): 175 General Appearance: WD/WN, alert Neck: supple Cardiovascular: regular rhythm Respiratory/Chest: lungs clear, no respiratory distress Abdomen: normal bowel sounds, non tender, soft, no organomegaly Neurologic: glass breaker II-XII grossly normal, alert, responsive Assessment/Plan Problem List: (1) Pneumonia due to COVID-19 virus ICD Codes: U07.1 - COVID-19; J12.82 - Pneumonia due to coronavirus disease 2019 SNOMED: 992099283609743714 (2) Hyperglycemia due to type 2 diabetes mellitus ICD Codes: E11.65 - Type 2 diabetes mellitus with hyperglycemia; R65.21 - Severe sepsis with septic shock SNOMED: 283243429355783, 28806722 Qualifiers: Qualified Codes: E11.65 - Type 2 diabetes mellitus with hyperglycemia (3) Acute respiratory failure with hypoxia ICD Codes: J96.01 - Acute respiratory failure with hypoxia; J12.82 - Pneumonia due to coronavirus disease 2019 SNOMED: 74026563, 906018516 (4) Anemia ICD Codes: D64.9 - Anemia, unspecified SNOMED: 890194514, 853392272 Qualifiers: Qualified Codes: D64.9 - Anemia, unspecified (5) Septic shock ICD Codes: A41.9 - Sepsis, unspecified organism; R65.21 - Severe sepsis with septic shock SNOMED: 09667054, 018701032 Status: stable Assessment/Plan: cont iv pressors as needed cont decadron iv abx for pna dvt/stress ulcer prophylaxis resp rx wean o2 as able cont icu care guarded Wisam Jenkins MD Sep 20, 2020 07:53
[2020-09-20 07:54] LABS: BASOPHILS % (AUTO) 0.9 % (0.0-2.0); HEMATOCRIT 32.9 % (37.0-47.0); LYMPHOCYTES % (AUTO) 14.2 % (20.0-45.0); MEAN CORPUSCULAR VOLUME 89 FL (80-99); MONOCYTES % (AUTO) 11.9 % (1.0-10.0); PLATELET COUNT 205 K/UL (150-450); RED BLOOD COUNT 3.71 M/UL (4.20-5.40); RED CELL DISTRIBUTION WIDTH 12.1 % (11.6-14.8); WHITE BLOOD COUNT 12.1 K/UL (4.8-10.8)
--- NOTE | 2020-09-20 07:58 | NUR ---
NURSE NOTES: Dr Jenkins here to see the patient. Updated him with patient's current condition including Levo off at 0545. No new orders for now.
[2020-09-20 08:49] LABS: ALBUMIN 2.5 G/DL (3.4-5.0); ALBUMIN/GLOBULIN RATIO 0.6 (1.0-2.7); BILIRUBIN,TOTAL 0.5 MG/DL (0.2-1.0); CALCIUM 8.5 MG/DL (8.5-10.1); CREATININE 1.1 MG/DL (0.55-1.30); POTASSIUM 3.9 MMOL/L (3.5-5.1)
[2020-09-20] MEDS: Enoxaparin 40mg Inj SUBQ SCH ×2 (09:02→21:32)
--- NOTE | 2020-09-20 09:55 | NUR ---
NURSE NOTES: RT lowered FiO2 to 28%, 3L. O2 sat 92-94%, RR 16. Will continue to monitor.
[2020-09-20] MEDS: Vancomycin 1gm/D5W 275ml IVPB SCH ×2 (10:28)
--- NOTE | 2020-09-20 11:08 | Consultation ---
History of Present Illness General Date patient seen: Sep 20, 2020 Reason for Hospitalization: Dyspnea/Respdistress Present Illness HPI This is a 80-year-old female with multiple medical comorbidities who was recently diagnosed with Covid last week after having had Covid symptom for about 2 weeks. She was admitted to [facility] with Covid pneumonia and saturations in 80's on room air. 3 weeks prior, she had a fall and sustained a trimalleolar right ankle fracture. She presents tonight with chief complaint of shortness of breath from the shelter, she had respiratory distress and oxygenation was 71% on room air. 911 was called. She was placed on oxygen and sent here. Patient still has coughing. past subjective fever and chills. No chest pain. Worse with exertion. Better with rest. noted to have leukocytosis, lactic acidosis, septic and admitted to ICU for care. surgery called to evaluate and assist with care. Allergies: Coded Allergies: No Known Allergies (Unverified , 09/19/20) COVID-19 Screening Contact w/high risk pt: Yes Experienced COVID-19 symptoms?: Yes Coronavirus symptoms experienc: Fatigue, Shortness of Breath Medication History Scheduled Acetaminophen (Acetaminophen), 650 MG ORAL Q4H, (Reported) Levofloxacin in Dextrose 5 % (Levofloxacin 500 mg/100 ml-D5w), 500 MG IV DAILY, (Reported) Scheduled PRN Albuterol Sulfate* (Albuterol Sulfate Hhn*), 3 ML INH Q4H PRN for Shortness of Breath, (Reported) Guaifenesin/Dextromethorphan* (Guaifenesin Dm Syrup*), 5 ML ORAL Q6HR PRN for FOR COUGH, (Reported) Losartan Potassium* (Losartan Potassium*), 50 MG ORAL DAILY PRN for For High Blood Pressure, (Reported) Ondansetron (Zofran), 4 MG INJ Q6H PRN for Nausea & Vomiting, (Reported) Patient History Limited by: medical condition History Provided By: Medical Record, PMD Healthcare decision maker Resuscitation status Advanced Directive on File Past Medical/Surgical History Past Medical/Surgical History: (1) Septic shock (2) Anemia (3) Acute respiratory failure with hypoxia (4) Hyperglycemia due to type 2 diabetes mellitus (5) Pneumonia due to COVID-19 virus Review of Systems Review of Symptoms General ROS: no weight loss or fever Psychological ROS: no depression or mood changes, no memory loss Ophthalmic ROS: no visual changes or eye irritation ENT ROS: no nasal congestion, hearing loss, dizziness Allergy and Immunology ROS: no allergic symptoms or urticaria Hematological and Lymphatic ROS: no swollen glands, unusual bleeding or bruising Endocrine ROS: no polyuria, polydipsia, weight changes, temperature intolerance Respiratory ROS: no cough, shortness of breath, or wheezing Cardiovascular ROS: no chest pain or dyspnea on exertion Gastrointestinal ROS: denies abdominal pain, bright red blood in stool. Musculoskeletal ROS: no myalgias or arthralgias Neurological ROS: no TIA or stroke symptoms Dermatological ROS: no new or changing skin lesions, rashes or pruritis Physical Exam Physical Exam General appearance: alert, cooperative, no distress, appears stated age Head: Normocephalic, without obvious abnormality, atraumatic Eyes: conjunctivae/corneas clear. PERRL, EOM's intact. Fundi benign Throat: Lips, mucosa, and tongue normal. Teeth and gums normal Neck: supple, symmetrical, trachea midline, no adenopathy, thyroid: not enlarged, symmetric, no tenderness/mass/nodules, no carotid bruit and no JVD Lungs: clear to auscultation bilaterally Heart: regular rate and rhythm, S1, S2 normal, no murmur, click, rub or gallop Abdomen: soft, non-tender. Bowel sounds normal. No masses, no organomegaly Extremities: extremities see below Pulses: 2+ and symmetric Skin: Skin color, texture, turgor normal. No rashes or lesions Neurologic: Grossly normal Last 24 Hour Vital Signs Date Time Temp Pulse Resp B/P (MAP) Pulse Ox O2 Delivery O2 Flow Rate FiO2 09/20/20 10:00 73 21 123/55 (77) 93 09/20/20 09:55 3.0 28 09/20/20 09:55 Venturi Mask 3.0 09/20/20 09:00 73 26 110/58 (75) 99 09/20/20 08:00 10.0 40 09/20/20 08:00 98.2 83 26 121/55 (77) 99 09/20/20 08:00 Venturi Mask 10.0 09/20/20 07:00 85 27 119/55 (76) 89 09/20/20 06:00 81 28 101/60 (74) 97 09/20/20 05:45 75 9 125/67 (86) 99 09/20/20 05:45 125/67 09/20/20 05:30 74 20 118/58 (78) 99 09/20/20 05:00 75 14 133/65 (87) 99 09/20/20 05:00 133/65 09/20/20 04:30 76 23 141/64 (89) 100 09/20/20 04:00 77 09/20/20 04:00 135/62 09/20/20 04:00 Venturi Mask 10.0 09/20/20 04:00 97.4 77 22 135/62 (86) 99 09/20/20 03:30 77 22 130/61 (84) 95 09/20/20 03:00 132/60 09/20/20 03:00 83 23 132/60 (84) 98 09/20/20 02:30 77 26 138/62 (87) 98 09/20/20 02:00 143/73 09/20/20 02:00 81 24 143/73 (96) 100 09/20/20 01:30 77 21 144/66 (92) 98 09/20/20 01:00 145/66 09/20/20 01:00 76 23 145/66 (92) 99 09/20/20 00:30 82 22 126/65 (85) 99 09/20/20 00:00 152/57 09/20/20 00:00 Venturi Mask 10.0 09/20/20 00:00 98.0 80 30 152/57 (88) 90 09/20/20 00:00 95 Venturi Mask 40 09/19/20 23:45 80 21 145/70 (95) 95 09/19/20 23:30 79 18 149/63 (91) 94 09/19/20 23:23 80 09/19/20 23:15 76 26 137/64 (88) 95 09/19/20 23:06 76 25 163/70 (101) 96 09/19/20 23:00 79 26 143/66 (91) 96 09/19/20 23:00 143/66 09/19/20 22:45 80 20 152/66 (94) 94 09/19/20 22:45 97.5 95 20 152/66 (94) 94 09/19/20 22:30 82 24 154/66 (95) 95 09/19/20 22:30 154/66 09/19/20 22:26 87 09/19/20 22:26 Venturi Mask 10.0 09/19/20 22:23 86 178/83 09/19/20 22:23 80 24 112/95 (101) 97 09/19/20 22:21 87 09/19/20 22:15 163/65 09/19/20 22:14 84 28 163/65 (97) 96 09/19/20 21:10 180/83 09/19/20 20:18 78 27 178/83 98 Venturi Mask 10.0 50 09/19/20 20:18 178/83 09/19/20 18:12 98.2 84 16 136/86 97 Venturi Mask 10.0 50 09/19/20 17:55 142/85 09/19/20 16:53 145/99 09/19/20 16:52 98.2 88 17 134/74 99 Venturi Mask 10.0 50 09/19/20 15:47 98.2 83 17 130/76 100 Venturi Mask 10.0 50 09/19/20 15:45 126/73 09/19/20 13:52 98.2 89 20 118/90 99 Venturi Mask 10.0 100 09/19/20 13:30 115/76 09/19/20 11:32 122/93 09/19/20 11:31 98.2 85 21 117/76 98 Venturi Mask 10.0 Intake and Output 09/19/20 09/20/20 19:00 07:00 Intake Total 201.435 ml Balance 201.435 ml Intake IV Total 201.435 ml # Voids 1 2 Laboratory Tests Test 09/20/20 00:40 09/20/20 06:46 Lactic Acid Level 2.30 mmol/L (0.4-2.0) H 2.20 mmol/L (0.66-2.22) White Blood Count 12.1 K/UL (4.8-10.8) H Red Blood Count 3.71 M/UL (4.20-5.40) L Hemoglobin 11.0 G/DL (12.0-16.0) L Hematocrit 32.9 % (37.0-47.0) L Mean Corpuscular Volume 89 FL (80-99) Mean Corpuscular Hemoglobin 29.8 PG (27.0-31.0) Mean Corpuscular Hemoglobin Concent 33.5 G/DL (32.0-36.0) Red Cell Distribution Width 12.1 % (11.6-14.8) Platelet Count 205 K/UL (150-450) Mean Platelet Volume 6.5 FL (6.5-10.1) Neutrophils (%) (Auto) 73.0 % (45.0-75.0) Lymphocytes (%) (Auto) 14.2 % (20.0-45.0) L Monocytes (%) (Auto) 11.9 % (1.0-10.0) H Eosinophils (%) (Auto) 0.0 % (0.0-3.0) Basophils (%) (Auto) 0.9 % (0.0-2.0) Sodium Level 139 MMOL/L (136-145) Potassium Level 3.9 MMOL/L (3.5-5.1) Chloride Level 106 MMOL/L (98-107) Carbon Dioxide Level 22 MMOL/L (21-32) Anion Gap 11 mmol/L (5-15) Blood Urea Nitrogen 20 mg/dL (7-18) H Creatinine 1.1 MG/DL (0.55-1.30) Estimat Glomerular Filtration Rate 48.0 mL/min (>60) Glucose Level 141 MG/DL (74-106) #H Calcium Level 8.5 MG/DL (8.5-10.1) Total Bilirubin 0.5 MG/DL (0.2-1.0) Aspartate Amino Transf (AST/SGOT) 50 U/L (15-37) H Alanine Aminotransferase (ALT/SGPT) 57 U/L (12-78) Alkaline Phosphatase 63 U/L (46-116) Troponin I 0.930 ng/mL (0.000-0.056) Pro-B-Type Natriuretic Peptide 5578 pg/mL (0-125) H Total Protein 6.6 G/DL (6.4-8.2) Albumin 2.5 G/DL (3.4-5.0) L Globulin 4.1 g/dL Albumin/Globulin Ratio 0.6 (1.0-2.7) L Height (Feet): 5 Height (Inches): 3.00 Weight (Pounds): 175 Medications Current Medications Medications (Trade) Dose Ordered Sig/Aura Route PRN Reason Start Time Stop Time Status Last Admin Dose Admin Acetaminophen (Tylenol) 650 mg Q4H PRN ORAL Mild Pain (Pain Scale 1-3) 09/19/20 08:15 10/19/20 08:14 Acetaminophen (Tylenol) 650 mg Q4H PRN ORAL Temp >100.5 09/19/20 08:45 10/19/20 08:44 Albuterol Sulfate (Proventil MDI) 2 puff Q4H PRN INH Shortness of Breath 09/19/20 14:15 12/18/20 14:14 Dexamethasone Sodium Phosphate (Decadron 4mg/ml vial) 6 mg DAILY IVP 09/20/20 09:00 09/28/20 09:01 09/20/20 09:02 Enoxaparin Sodium (Lovenox) 40 mg Q12HR SUBQ 09/19/20 21:00 12/18/20 20:59 09/20/20 09:02 Norepinephrine Bitartrate 8 mg/ Sodium Chloride 250 ml @ 0 mls/hr Q24H IV 09/19/20 05:45 09/22/20 05:44 09/19/20 17:55 Ondansetron HCl (Zofran) 4 mg Q6H PRN ORAL Nausea & Vomiting 09/19/20 08:15 10/19/20 08:14 Pantoprazole (Protonix) 40 mg DAILY ORAL 09/19/20 09:00 10/19/20 08:59 09/20/20 09:02 Piperacillin Sod/ Tazobactam Sod 3.375 gm/Sodium Chloride 110 ml @ 27.5 mls/hr EVERY 8 HOURS IVPB 09/19/20 10:00 09/24/20 09:59 09/20/20 05:48 Vancomycin HCl (Vanco pharmacy to dose) 1 ea DAILY PRN MISC Per rx protocol 09/19/20 08:15 10/19/20 08:14 Vancomycin HCl 1 gm/Dextrose 275 ml @ 183.708 mls/hr Q24H IVPB 09/20/20 10:00 09/25/20 09:59 09/20/20 10:28 Assessment/Plan Problem List: (1) Septic shock Assessment & Plan: 80F septic shock, leukocytosis, lactic acidosis, covid prior, pna, ill appearing on oxygen hypoxic hypotensive placed on fluid resuscitation and pressors have been able to wean pressors since now off labs improving lactic acidosis resolving hold on further line for now cont iv fluids fx noted plain films noted plan ortho in future once edema resolve duplex noted cont respiratory support will follow with recs thank you Bones/joints: Acute mildly displaced posterior malleolar fracture. Acute minimally displaced lateral malleolus fracture. No ankle mortise widening. No dislocation. Soft tissues: Mild soft tissue swelling. IMPRESSION: 1. Acute mildly displaced posterior malleolar fracture. 2. Acute minimally displaced lateral malleolus fracture. Right deep veins: No DVT in the right common femoral, femoral, proximal deep femoral or popliteal veins. The veins demonstrate normal color flow, are normally compressible, with normal phasic flow and/or augmentation response. The right posterior tibial and anterior tibial veins were not visualized due to overlying cast. Right superficial veins: No thrombus in the visualized right great saphenous vein. ----- Left deep veins: No DVT in the left common femoral, femoral, proximal deep femoral or popliteal veins. The veins demonstrate normal color flow, are normally compressible, with normal phasic flow and/or augmentation response. Left superficial veins: No thrombus in the visualized left great saphenous vein. IMPRESSION: No deep venous thrombosis of the bilateral lower extremities. The right posterior tibial and anterior tibial veins were not visualized due to overlying cast. ICD Codes: A41.9 - Sepsis, unspecified organism; R65.21 - Severe sepsis with septic shock SNOMED: 27726727, 946608503 (2) Anemia ICD Codes: D64.9 - Anemia, unspecified SNOMED: 275820332, 280204477 Qualifiers: Qualified Codes: D64.9 - Anemia, unspecified (3) Acute respiratory failure with hypoxia ICD Codes: J96.01 - Acute respiratory failure with hypoxia; J12.82 - Pneumonia due to coronavirus disease 2018 SNOMED: 48122219, 874759315 (4) Hyperglycemia due to type 2 diabetes mellitus ICD Codes: E11.65 - Type 2 diabetes mellitus with hyperglycemia; R65.21 - Severe sepsis with septic shock SNOMED: 912856554096992, 19152280 Qualifiers: Qualified Codes: E11.65 - Type 2 diabetes mellitus with hyperglycemia (5) Pneumonia due to COVID-19 virus Assessment & Plan: Lungs: Patchy airspace opacities bilaterally are present in a peripheral predominant distribution. Pleural space: Unremarkable. No pneumothorax. Heart: Unremarkable. No cardiomegaly. Mediastinum: Unremarkable. Bones/joints: Unremarkable. IMPRESSION: Findings of atypical pneumonia. No acute traumatic findings shown by x- ray. ICD Codes: U07.1 - COVID-19; J12.82 - Pneumonia due to coronavirus disease 2018 SNOMED: [id number] [place] White Sep 20, 2020 11:08
--- NOTE | 2020-09-20 11:55 | NUR ---
NURSE NOTES: Assisted patient to use bedpan for small amount of urine. Patient is able to turn and reposition with help. Patient is tolerating 3L Venturi mask. O2 sat 92-97%. Oral care done.
--- NOTE | 2020-09-20 14:28 | NUR ---
NURSE NOTES: Assisted patient to place bedpan for smear of brown BM and urine. Daphney care done and changed the bottom sheet. Patient helps turning and repositioning.
--- NOTE | 2020-09-20 15:42 | Pulmonology Progress Note ---
Subjective ROS Limited/Unobtainable: No Allergies: Coded Allergies: No Known Allergies (Unverified , 09/19/20) All Systems: reviewed and negative except above Objective Last 24 Hour Vital Signs Date Time Temp Pulse Resp B/P (MAP) Pulse Ox O2 Delivery O2 Flow Rate FiO2 09/20/20 14:00 75 26 131/54 (79) 96 09/20/20 13:00 83 21 122/50 (74) 93 09/20/20 12:00 73 20 126/60 (82) 93 09/20/20 12:00 Venturi Mask 3.0 09/20/20 11:27 80 09/20/20 11:00 79 27 127/52 (77) 93 09/20/20 10:00 73 21 123/55 (77) 93 09/20/20 09:55 3.0 28 09/20/20 09:55 Venturi Mask 3.0 09/20/20 09:00 73 26 110/58 (75) 99 09/20/20 08:00 10.0 40 09/20/20 08:00 98.2 83 26 121/55 (77) 99 09/20/20 08:00 Venturi Mask 10.0 09/20/20 07:26 71 09/20/20 07:00 85 27 119/55 (76) 89 09/20/20 06:00 81 28 101/60 (74) 97 09/20/20 05:45 75 9 125/67 (86) 99 09/20/20 05:45 125/67 09/20/20 05:30 74 20 118/58 (78) 99 09/20/20 05:00 75 14 133/65 (87) 99 09/20/20 05:00 133/65 09/20/20 04:30 76 23 141/64 (89) 100 09/20/20 04:00 77 09/20/20 04:00 135/62 09/20/20 04:00 Venturi Mask 10.0 09/20/20 04:00 97.4 77 22 135/62 (86) 99 09/20/20 03:30 77 22 130/61 (84) 95 09/20/20 03:00 132/60 09/20/20 03:00 83 23 132/60 (84) 98 09/20/20 02:30 77 26 138/62 (87) 98 09/20/20 02:00 143/73 09/20/20 02:00 81 24 143/73 (96) 100 09/20/20 01:30 77 21 144/66 (92) 98 09/20/20 01:00 145/66 09/20/20 01:00 76 23 145/66 (92) 99 09/20/20 00:30 82 22 126/65 (85) 99 09/20/20 00:00 152/57 09/20/20 00:00 Venturi Mask 10.0 09/20/20 00:00 98.0 80 30 152/57 (88) 90 09/20/20 00:00 95 Venturi Mask 40 09/19/20 23:45 80 21 145/70 (95) 95 09/19/20 23:30 79 18 149/63 (91) 94 09/19/20 23:23 80 09/19/20 23:15 76 26 137/64 (88) 95 09/19/20 23:06 76 25 163/70 (101) 96 09/19/20 23:00 79 26 143/66 (91) 96 09/19/20 23:00 143/66 09/19/20 22:45 80 20 152/66 (94) 94 09/19/20 22:45 97.5 95 20 152/66 (94) 94 09/19/20 22:30 82 24 154/66 (95) 95 09/19/20 22:30 154/66 09/19/20 22:26 87 09/19/20 22:26 Venturi Mask 10.0 09/19/20 22:23 86 178/83 09/19/20 22:23 80 24 112/95 (101) 97 09/19/20 22:21 87 09/19/20 22:15 163/65 09/19/20 22:14 84 28 163/65 (97) 96 09/19/20 21:10 180/83 09/19/20 20:18 78 27 178/83 98 Venturi Mask 10.0 50 09/19/20 20:18 178/83 09/19/20 18:12 98.2 84 16 136/86 97 Venturi Mask 10.0 50 09/19/20 17:55 142/85 09/19/20 16:53 145/99 09/19/20 16:52 98.2 88 17 134/74 99 Venturi Mask 10.0 50 09/19/20 15:47 98.2 83 17 130/76 100 Venturi Mask 10.0 50 09/19/20 15:45 126/73 l Intake and Output 09/19/20 09/20/20 19:00 07:00 Intake Total 201.435 ml Balance 201.435 ml Intake IV Total 201.435 ml # Voids 1 2 Microbiology Date/Time Source Procedure Growth Status 09/19/20 05:55 Nasal Nares MRSA Culture - Final NO METHICILLIN RESISTANT STAPH AUREUS... Complete 09/19/20 04:26 Blood Blood Culture - Preliminary NO GROWTH AFTER 24 HOURS Resulted 09/19/20 04:05 Blood Blood Culture - Preliminary Resulted Laboratory Tests 09/20/20 00:40: Lactic Acid Level 2.30H 09/20/20 06:46: Lactic Acid Level 2.20, White Blood Count 12.1H, Red Blood Count 3.71L, Hemoglobin 11.0L, Hematocrit 32.9L, Mean Corpuscular Volume 89, Mean Corpuscular Hemoglobin 29.8, Mean Corpuscular Hemoglobin Concent 33.5, Red Cell Distribution Width 12.1, Platelet Count 205, Mean Platelet Volume 6.5, Neutrophils (%) (Auto) 73.0, Lymphocytes (%) (Auto) 14.2L, Monocytes (%) (Auto) 11.9H, Eosinophils (%) (Auto) 0.0, Basophils (%) (Auto) 0.9, Sodium Level 139, Potassium Level 3.9, Chloride Level 106, Carbon Dioxide Level 22, Anion Gap 11, Blood Urea Nitrogen 20H, Creatinine 1.1, Estimat Glomerular Filtration Rate 48.0, Glucose Level 141#H, Calcium Level 8.5, Total Bilirubin 0.5, Aspartate Amino Transf (AST/SGOT) 50H, Alanine Aminotransferase (ALT/SGPT) 57, Alkaline Phosphatase 63, Troponin I 0.930H, Pro-B-Type Natriuretic Peptide 5578H, Total Protein 6.6, Albumin 2.5L, Globulin 4.1, Albumin/Globulin Ratio 0.6L Current Medications Medications (Trade) Dose Ordered Sig/Aura Route PRN Reason Start Time Stop Time Status Last Admin Dose Admin Acetaminophen (Tylenol) 650 mg Q4H PRN ORAL Mild Pain (Pain Scale 1-3) 09/19/20 08:15 10/19/20 08:14 Acetaminophen (Tylenol) 650 mg Q4H PRN ORAL Temp >100.5 09/19/20 08:45 10/19/20 08:44 Albuterol Sulfate (Proventil MDI) 2 puff Q4H PRN INH Shortness of Breath 09/19/20 14:15 12/18/20 14:14 Dexamethasone Sodium Phosphate (Decadron 4mg/ml vial) 6 mg DAILY IVP 09/20/20 09:00 09/28/20 09:01 09/20/20 09:02 Enoxaparin Sodium (Lovenox) 40 mg Q12HR SUBQ 09/19/20 21:00 12/18/20 20:59 09/20/20 09:02 Norepinephrine Bitartrate 8 mg/ Sodium Chloride 250 ml @ 0 mls/hr Q24H IV 09/19/20 05:45 09/22/20 05:44 09/19/20 17:55 Ondansetron HCl (Zofran) 4 mg Q6H PRN ORAL Nausea & Vomiting 09/19/20 08:15 10/19/20 08:14 Pantoprazole (Protonix) 40 mg DAILY ORAL 09/19/20 09:00 10/19/20 08:59 09/20/20 09:02 Piperacillin Sod/ Tazobactam Sod 3.375 gm/Sodium Chloride 110 ml @ 27.5 mls/hr EVERY 8 HOURS IVPB 09/19/20 10:00 09/24/20 09:59 09/20/20 14:01 Vancomycin HCl (Vanco pharmacy to dose) 1 ea DAILY PRN MISC Per rx protocol 09/19/20 08:15 10/19/20 08:14 Vancomycin HCl 1 gm/Dextrose 275 ml @ 183.708 mls/hr Q24H IVPB 09/20/20 10:00 09/25/20 09:59 09/20/20 10:28 Assessment/Plan Assessment/Plan Pulmonary CCM Progress note SUBJECTIVE: HPI: Patient is a 80-year-old woman with past history of Hypertension, recent right ankle fracture admitted with Covid Pneumonia. She complained of chest pain, shortness of breath, worsening over two weeks,noted to be hypoxic and hypotensive, central line placed,on pressors PRN, troponin elevated. O2 sats stableon VM 3L/min Past Medical History: Hypertension and trimalleilar right ankle fracture three weeks ago. Allergies: No known drug allergies. Medications noted SH: NC, . FH: NC ROS: Negative aside from above,poor historian OBJECTIVE: Vital Signs: Noted PE: GENERAL: Comfortable on FMO2, obese. 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 Sodium 137, potassium 3.5, chloride 102, bicarb 17, BUN 14, creatinine 1.3, glucose 283. Troponin 0.239. WBC 12.5, hemoglobin 11.9, hematocrit 35.6, platelets 162. Imaging: Chest x-ray:Bilateralpatchy infiltartes. Right ankle x-ray showed acute mildly displaced posterior malleolar fracture, acute minimally displaced lateral malleolus fracture. Venous duplex was negative for DVT. 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
--- NOTE | 2020-09-20 16:51 | NUR ---
NURSE NOTES: Called and left a message to Dr Fuentes regarding blood culture positive for gram positive cocci in clusters both bottles. Awaiting call back for new orders.
--- NOTE | 2020-09-20 17:00 | NUR ---
NURSE NOTES: Dr Fuentes called back. No new orders since patient is on Vancomycin.
--- NOTE | 2020-09-20 18:10 | NUR ---
NURSE NOTES: Assisted patient to use bedpan for moderate amount of yellow urine. Perineal care done. BP 135/53 with out Levophed. Will continue to monitor.
--- NOTE | 2020-09-20 19:30 | NUR ---
NURSE HAND-OFF REPORT: Latest Vital Signs: Temperature 98.5 , Pulse 77 , B/P 129 /49 , Respiratory Rate 11 , O2 SAT 95 , Venturi Mask, O2 Flow Rate 3.0 . Vital Sign Comment: EKG Rhythm: Sinus Rhythm Rhythm change?: N MD Notified?: MD Response: Latest Lozada Fall Score: 60 Fall Risk: High Risk Safety Measures: Call light , Bed Alarm Zone 2, Side Rails Side Rails x3, Bed position Low and Locked. Fall Precautions: Yellow Socks Patient Fall Education Report given to Chris Woodson RN.
--- NOTE | 2020-09-20 19:32 | NUR ---
NURSE NOTES: received patient from Elda Real RN under the care of Dr. Jenkins for the admitting dx. of Covid PNA and septic shock. Patient moted full code status and NKA. Fall, aspiration, and isolation precautions observed and maintained at all times. Tolerating O2 settings well, no acute distress or discomfort at this time. Will continue to monitor.
--- NOTE | 2020-09-20 20:00 | NUR ---
NURSE NOTES: Patient noted awake and resting comfortably. Denies pain at this time. No distress noted. Will continue to monitor.
--- NOTE | 2020-09-20 22:00 | NUR ---
NURSE NOTES: Patient asleep but easily arousable. Able to make needs know with clear speech in Malay. Denies any pain or discomfort at this time. All due meds given and tolerated well. Will continue to monitor.
[2020-09-21] VITALS (14 sets, daily range): BP systolic 119–163; BP diastolic 47–99
--- NOTE | 2020-09-21 | NUR ---
NURSE NOTES: Patient continues to be asleep and resting comfortably. Opens eyes spontaneously. Denies any discomfort at this time. Will continue to monitor.
--- NOTE | 2020-09-21 02:00 | NUR ---
NURSE NOTES: patient continues to be asleep. No acute distress noted. Vitals WNL. Will continue to monitor.
--- NOTE | 2020-09-21 04:00 | NUR ---
NURSE NOTES: Patient asleep and resting comfortably. Tolerating venturi mask settings well. Will continue to monitor.
[2020-09-21] MEDS: Piperacillin/Tazobactam 3.375 GM in NS 110 ML IVPB SCH (05:13)
--- NOTE | 2020-09-21 06:00 | NUR ---
NURSE NOTES: Patient tolerating O2 settings well. Bed bath given. Will continue to monitor.
[2020-09-21 06:24] LABS: HEMATOCRIT 33.3 % (37.0-47.0); HEMOGLOBIN 11.2 G/DL (12.0-16.0); MEAN CORPUSCULAR VOLUME 88 FL (80-99); PLATELET COUNT 244 K/UL (150-450); RED BLOOD COUNT 3.77 M/UL (4.20-5.40); RED CELL DISTRIBUTION WIDTH 11.6 % (11.6-14.8)
[2020-09-21 06:35] LABS: INR 1.2 (0.9-1.1)
--- NOTE | 2020-09-21 06:42 | NUR ---
NURSE NOTES: Seen and examined by Dr. Jenkins with new orders noted and carried out.
--- NOTE | 2020-09-21 07:00 | NUR ---
NURSE NOTES: received patient report from pedro rn. patient is on bed asleep. not in acute distreeon venti mask at prescribed rate, SR on the monitor. no acute events last night, dvt and GI prophylaxis.bed is low and locked for safety.will follow plan of care.
[2020-09-21 07:04] LABS: ALANINE AMINOTRANSFERASE 56 U/L (12-78); ALBUMIN 2.6 G/DL (3.4-5.0); ALBUMIN/GLOBULIN RATIO 0.6 (1.0-2.7); ALKALINE PHOSPHATASE 68 U/L (46-116); ANION GAP 9 mmol/L (5-15); ASPARTATE AMINO TRANSFERASE 47 U/L (15-37); BILIRUBIN,TOTAL 0.8 MG/DL (0.2-1.0); BLOOD UREA NITROGEN 19 mg/dL (7-18); CALCIUM 8.6 MG/DL (8.5-10.1); CARBON DIOXIDE 26 MMOL/L (21-32); CHLORIDE 104 MMOL/L (98-107); CREATININE 0.9 MG/DL (0.55-1.30); POTASSIUM 3.9 MMOL/L (3.5-5.1); SODIUM 139 MMOL/L (136-145)
--- NOTE | 2020-09-21 07:15 | NUR ---
NURSE HAND-OFF REPORT: Latest Vital Signs: Temperature 98.6 , Pulse 60 , B/P 139 /52 , Respiratory Rate 20 , O2 SAT 93 , Venturi Mask, O2 Flow Rate 3.0 . Vital Sign Comment: Bradycardia noted. EKG Rhythm: Sinus Rhythm Rhythm change?: N MD Notified?: - MD Response: Latest Lozada Fall Score: 60 Fall Risk: High Risk Safety Measures: Call light , Bed Alarm Zone 2, Side Rails Side Rails x3, Bed position Low and Locked. Fall Precautions: Yellow Socks Patient Fall Education Report given to GIANFRANCO Espinosa.
--- NOTE | 2020-09-21 07:58 | NUR ---
RADIOLOGY DEPT., CHEST X-RAY DONE.-P.DYE
[2020-09-21] MEDS: Enoxaparin 40mg Inj SUBQ SCH ×2 (08:25→20:57)
[2020-09-21] MEDS ORDERED: Varibar Nectar 240ml MC PRN (10:15)
[2020-09-21] MEDS ORDERED: Varibar Thin Liquid powder 148gm MC PRN (10:15)
[2020-09-21] MEDS ORDERED: Varibar Honey 250ml MC PRN (10:15)
[2020-09-21] MEDS ORDERED: Varibar Pudding 230ml MC PRN (10:15)
--- NOTE | 2020-09-21 10:17 | NUR ---
NURSE NOTES: dr castrejon made aware that patients trop level yesterday was 0.930, and pO2 today is 65.2. Per dr ac "OK" to transfe patient to tele.
--- NOTE | 2020-09-21 11:02 | Infectious Diseases Prog Note ---
Assessment/Plan Assessment/Plan antibiotics : vancomycin iv, zosyn A 1. covid 19 pneumonia on 3 liters O2 with 95 % saturation 2. diabetes mellitus 3. hypertension 4. obesity 5. gram positive sepsis P 1. 1 dose ivermectin 2. continue dexamethasone day 3 3. continue iv vancomycin 4. d/c zosyn 5. continue isolation Subjective Constitutional: Denies: fever, chills Respiratory: Reports: dry cough - mild; Denies: shortness of breath Gastrointestinal/Abdominal: Denies: nausea, vomiting, diarrhea Musculoskeletal: Denies: pain Allergies: Coded Allergies: No Known Allergies (Unverified , 09/19/20) Objective Last 24 Hour Vital Signs Date Time Temp Pulse Resp B/P (MAP) Pulse Ox O2 Delivery O2 Flow Rate FiO2 09/21/20 10:00 55 19 137/72 (93) 95 09/21/20 09:11 51 09/21/20 09:00 56 20 137/54 (81) 92 09/21/20 08:00 57 20 163/53 (89) 94 09/21/20 08:00 3.0 40 09/21/20 08:00 Venturi Mask 3.0 09/21/20 07:00 98.2 52 22 119/99 (106) 95 09/21/20 06:00 60 20 139/52 (81) 93 09/21/20 05:45 139/52 09/21/20 05:00 69 25 140/55 (83) 90 09/21/20 04:51 54 09/21/20 04:00 Venturi Mask 3.0 09/21/20 04:00 98.6 54 19 139/54 (82) 96 09/21/20 04:00 3.0 40 09/21/20 03:00 55 20 140/60 (86) 93 09/21/20 02:00 62 19 147/64 (91) 92 09/21/20 01:00 71 20 131/54 (79) 91 09/21/20 00:00 98.6 58 19 123/47 (72) 95 09/21/20 00:00 Venturi Mask 3.0 09/21/20 00:00 3.0 28 09/20/20 23:37 71 09/20/20 23:37 71 09/20/20 23:00 63 19 134/53 (80) 95 09/20/20 22:00 63 19 139/47 (77) 95 09/20/20 21:00 77 12 138/60 (86) 93 09/20/20 20:00 3.0 28 09/20/20 20:00 Venturi Mask 3.0 09/20/20 20:00 98.2 67 15 135/56 (82) 94 09/20/20 19:57 94 Venturi Mask 40 09/20/20 19:24 61 09/20/20 19:00 77 11 129/49 (75) 95 09/20/20 18:00 67 26 135/53 (80) 95 09/20/20 17:00 67 20 134/54 (80) 96 09/20/20 16:00 98.5 61 19 132/55 (80) 93 09/20/20 16:00 3.0 28 09/20/20 16:00 Venturi Mask 3.0 09/20/20 15:34 63 09/20/20 15:00 66 21 119/60 (79) 96 09/20/20 14:00 75 26 131/54 (79) 96 09/20/20 13:00 83 21 122/50 (74) 93 09/20/20 12:00 98.6 73 20 126/60 (82) 93 09/20/20 12:00 Venturi Mask 3.0 09/20/20 11:27 80 09/20/20 11:00 79 27 127/52 (77) 93 Height (Feet): 5 Height (Inches): 3.00 Weight (Pounds): 175 Microbiology Date/Time Source Procedure Growth Status 09/19/20 05:55 Nasal Nares MRSA Culture - Final NO METHICILLIN RESISTANT STAPH AUREUS... Complete 09/19/20 04:26 Blood Blood Culture - Preliminary NO GROWTH AFTER 24 HOURS Resulted 09/19/20 04:05 Blood Blood Culture - Preliminary Resulted Laboratory Tests Test 09/21/20 05:08 09/21/20 08:36 White Blood Count 11.0 K/UL (4.8-10.8) H Red Blood Count 3.77 M/UL (4.20-5.40) L Hemoglobin 11.2 G/DL (12.0-16.0) L Hematocrit 33.3 % (37.0-47.0) L Mean Corpuscular Volume 88 FL (80-99) Mean Corpuscular Hemoglobin 29.7 PG (27.0-31.0) Mean Corpuscular Hemoglobin Concent 33.7 G/DL (32.0-36.0) Red Cell Distribution Width 11.6 % (11.6-14.8) Platelet Count 244 K/UL (150-450) Mean Platelet Volume 6.9 FL (6.5-10.1) Neutrophils (%) (Auto) % (45.0-75.0) Lymphocytes (%) (Auto) % (20.0-45.0) Monocytes (%) (Auto) % (1.0-10.0) Eosinophils (%) (Auto) % (0.0-3.0) Basophils (%) (Auto) % (0.0-2.0) Differential Total Cells Counted 100 Neutrophils % (Manual) 75 % (45-75) Lymphocytes % (Manual) 17 % (20-45) L Monocytes % (Manual) 8 % (1-10) Eosinophils % (Manual) 0 % (0-3) Basophils % (Manual) 0 % (0-2) Band Neutrophils 0 % (0-8) Platelet Estimate Adequate Platelet Morphology Normal Red Blood Cell Morphology Normal Erythrocyte Sedimentation Rate 78 MM/HR (0-30) H Prothrombin Time 12.7 SEC (9.30-11.50) H Prothromb Time International Ratio 1.2 (0.9-1.1) H Activated Partial Thromboplast Time 24 SEC (23-33) Sodium Level 139 MMOL/L (136-145) Potassium Level 3.9 MMOL/L (3.5-5.1) Chloride Level 104 MMOL/L (98-107) Carbon Dioxide Level 26 MMOL/L (21-32) Anion Gap 9 mmol/L (5-15) Blood Urea Nitrogen 19 mg/dL (7-18) H Creatinine 0.9 MG/DL (0.55-1.30) Estimat Glomerular Filtration Rate > 60 mL/min (>60) Glucose Level 100 MG/DL (74-106) Calcium Level 8.6 MG/DL (8.5-10.1) Total Bilirubin 0.8 MG/DL (0.2-1.0) Aspartate Amino Transf (AST/SGOT) 47 U/L (15-37) H Alanine Aminotransferase (ALT/SGPT) 56 U/L (12-78) Alkaline Phosphatase 68 U/L (46-116) C-Reactive Protein, Quantitative 0.9 mg/dL (0.00-0.90) Total Protein 6.8 G/DL (6.4-8.2) Albumin 2.6 G/DL (3.4-5.0) L Globulin 4.2 g/dL Albumin/Globulin Ratio 0.6 (1.0-2.7) L Arterial Blood pH 7.462 (7.350-7.450) Arterial Blood Partial Pressure CO2 35.8 mmHg (35.0-45.0) Arterial Blood Partial Pressure O2 65.2 mmHg (75.0-100.0) L Arterial Blood HCO3 25.0 mmol/L (22.0-26.0) Arterial Blood Oxygen Saturation 92.8 % (95-100) L Arterial Blood Base Excess 1.5 (-2-2) Huey Test Positive Current Medications Medications (Trade) Dose Ordered Sig/Aura Route PRN Reason Start Time Stop Time Status Last Admin Dose Admin Acetaminophen (Tylenol) 650 mg Q4H PRN ORAL Mild Pain (Pain Scale 1-3) 09/19/20 08:15 10/19/20 08:14 Acetaminophen (Tylenol) 650 mg Q4H PRN ORAL Temp >100.5 09/19/20 08:45 10/19/20 08:44 Albuterol Sulfate (Proventil MDI) 2 puff Q4H PRN INH Shortness of Breath 09/19/20 14:15 12/18/20 14:14 Barium Sulfate (Varibar Honey) 250 ml NOW PRN MC RAD 09/21/20 10:15 09/24/20 10:06 Barium Sulfate (Varibar [place]) 240 ml NOW PRN MC RAD 09/21/20 10:15 09/24/20 10:06 Barium Sulfate (Varibar Pudding) 230 ml NOW PRN MC RAD 09/21/20 10:15 09/24/20 10:06 Barium Sulfate (Varibar Thin Liquid powder) 148 gm NOW PRN MC RAD 09/21/20 10:15 09/24/20 10:06 Chlorhexidine Gluconate (Adeline-Hex 2%) 1 applic DAILY@1999 TOPIC 09/21/20 20:00 12/20/20 19:59 Dexamethasone Sodium Phosphate (Decadron 4mg/ml vial) 6 mg DAILY IVP 09/20/20 09:00 09/28/20 09:01 09/21/20 08:24 Enoxaparin Sodium (Lovenox) 40 mg Q12HR SUBQ 09/19/20 21:00 12/18/20 20:59 09/21/20 08:25 Ondansetron HCl (Zofran) 4 mg Q6H PRN ORAL Nausea & Vomiting 09/19/20 08:15 10/19/20 08:14 Pantoprazole (Protonix) 40 mg DAILY ORAL 09/19/20 09:00 10/19/20 08:59 09/21/20 08:24 Piperacillin Sod/ Tazobactam Sod 3.375 gm/Sodium Chloride 110 ml @ 27.5 mls/hr EVERY 8 HOURS IVPB 09/19/20 10:00 09/24/20 09:59 09/21/20 05:13 Vancomycin HCl (Vanco pharmacy to dose) 1 ea DAILY PRN MISC Per rx protocol 09/19/20 08:15 10/19/20 08:14 Vancomycin HCl 1 gm/Dextrose 275 ml @ 183.708 mls/hr Q24H IVPB 09/20/20 10:00 09/25/20 09:59 09/20/20 10:28 Nisha Fuentes MD Sep 21, 2020 11:02
[2020-09-21] MEDS: Vancomycin 1gm/D5W 275ml IVPB SCH ×4 (11:16→21:01)
--- NOTE | 2020-09-21 11:55 | Pulmonology Progress Note ---
Subjective ROS Limited/Unobtainable: No Constitutional: Denies: fever, chills Gastrointestinal/Abdominal: Denies: nausea, vomiting, diarrhea Musculoskeletal: Denies: pain Allergies: Coded Allergies: No Known Allergies (Unverified , 09/19/20) All Systems: reviewed and negative except above Subjective care noted and reviewed on oxyge cultures and care noted Objective Last 24 Hour Vital Signs Date Time Temp Pulse Resp B/P (MAP) Pulse Ox O2 Delivery O2 Flow Rate FiO2 09/21/20 10:00 55 19 137/72 (93) 95 09/21/20 09:11 51 09/21/20 09:00 56 20 137/54 (81) 92 09/21/20 08:00 57 20 163/53 (89) 94 09/21/20 08:00 3.0 40 09/21/20 08:00 Venturi Mask 3.0 09/21/20 07:00 98.2 52 22 119/99 (106) 95 09/21/20 06:00 60 20 139/52 (81) 93 09/21/20 05:45 139/52 09/21/20 05:00 69 25 140/55 (83) 90 09/21/20 04:51 54 09/21/20 04:00 Venturi Mask 3.0 09/21/20 04:00 98.6 54 19 139/54 (82) 96 09/21/20 04:00 3.0 40 09/21/20 03:00 55 20 140/60 (86) 93 09/21/20 02:00 62 19 147/64 (91) 92 09/21/20 01:00 71 20 131/54 (79) 91 09/21/20 00:00 98.6 58 19 123/47 (72) 95 09/21/20 00:00 Venturi Mask 3.0 09/21/20 00:00 3.0 28 09/20/20 23:37 71 09/20/20 23:37 71 09/20/20 23:00 63 19 134/53 (80) 95 09/20/20 22:00 63 19 139/47 (77) 95 09/20/20 21:00 77 12 138/60 (86) 93 09/20/20 20:00 3.0 28 09/20/20 20:00 Venturi Mask 3.0 09/20/20 20:00 98.2 67 15 135/56 (82) 94 09/20/20 19:57 94 Venturi Mask 40 09/20/20 19:24 61 09/20/20 19:00 77 11 129/49 (75) 95 09/20/20 18:00 67 26 135/53 (80) 95 09/20/20 17:00 67 20 134/54 (80) 96 09/20/20 16:00 98.5 61 19 132/55 (80) 93 09/20/20 16:00 3.0 28 09/20/20 16:00 Venturi Mask 3.0 09/20/20 15:34 63 09/20/20 15:00 66 21 119/60 (79) 96 09/20/20 14:00 75 26 131/54 (79) 96 09/20/20 13:00 83 21 122/50 (74) 93 09/20/20 12:00 98.6 73 20 126/60 (82) 93 09/20/20 12:00 Venturi Mask 3.0 Intake and Output 09/20/20 09/21/20 19:00 07:00 Intake Total 467.500 ml Balance 467.500 ml Intake IV Total 467.500 ml # Voids 3 1 Objective deferred due to COVID Microbiology Date/Time Source Procedure Growth Status 09/19/20 05:55 Nasal Nares MRSA Culture - Final NO METHICILLIN RESISTANT STAPH AUREUS... Complete 09/19/20 04:26 Blood Blood Culture - Preliminary NO GROWTH AFTER 24 HOURS Resulted 09/19/20 04:05 Blood Blood Culture - Preliminary Resulted Laboratory Tests 09/21/20 05:08: White Blood Count 11.0H, Red Blood Count 3.77L, Hemoglobin 11.2L, Hematocrit 33.3L, Mean Corpuscular Volume 88, Mean Corpuscular Hemoglobin 29.7, Mean Corpuscular Hemoglobin Concent 33.7, Red Cell Distribution Width 11.6, Platelet Count 244, Mean Platelet Volume 6.9, Neutrophils (%) (Auto) , Lymphocytes (%) (Auto) , Monocytes (%) (Auto) , Eosinophils (%) (Auto) , Basophils (%) (Auto) , Differential Total Cells Counted 100, Neutrophils % (Manual) 75, Lymphocytes % (Manual) 17L, Monocytes % (Manual) 8, Eosinophils % (Manual) 0, Basophils % (Manual) 0, Band Neutrophils 0, Platelet Estimate Adequate, Platelet Morphology Normal, Red Blood Cell Morphology Normal, Erythrocyte Sedimentation Rate 78H, Prothrombin Time 12.7H, Prothromb Time International Ratio 1.2H, Activated Partial Thromboplast Time 24, Sodium Level 139, Potassium Level 3.9, Chloride Level 104, Carbon Dioxide Level 26, Anion Gap 9, Blood Urea Nitrogen 19H, Creatinine 0.9, Estimat Glomerular Filtration Rate > 60, Glucose Level 100, Calcium Level 8.6, Total Bilirubin 0.8, Aspartate Amino Transf (AST/SGOT) 47H, Alanine Aminotransferase (ALT/SGPT) 56, Alkaline Phosphatase 68, C-Reactive Protein, Quantitative 0.9, Total Protein 6.8, Albumin 2.6L, Globulin 4.2, Albumin/Globulin Ratio 0.6L 09/21/20 08:36: Arterial Blood pH 7.462H, Arterial Blood Partial Pressure CO2 35.8, Arterial B lood Partial Pressure O2 65.2L, Arterial Blood HCO3 25.0, Arterial Blood Oxygen Saturation 92.8L, Arterial Blood Base Excess 1.5, Huey Test Positive 09/21/20 10:00: Vancomycin Level Trough [Pending] Current Medications Medications (Trade) Dose Ordered Sig/Aura Route PRN Reason Start Time Stop Time Status Last Admin Dose Admin Acetaminophen (Tylenol) 650 mg Q4H PRN ORAL Mild Pain (Pain Scale 1-3) 09/19/20 08:15 10/19/20 08:14 Acetaminophen (Tylenol) 650 mg Q4H PRN ORAL Temp >100.5 09/19/20 08:45 10/19/20 08:44 Albuterol Sulfate (Proventil MDI) 2 puff Q4H PRN INH Shortness of Breath 09/19/20 14:15 12/18/20 14:14 Barium Sulfate (Varibar Honey) 250 ml NOW PRN MC RAD 09/21/20 10:15 09/24/20 10:06 Barium Sulfate (Varibar [place]) 240 ml NOW PRN MC RAD 09/21/20 10:15 09/24/20 10:06 Barium Sulfate (Varibar Pudding) 230 ml NOW PRN MC RAD 09/21/20 10:15 09/24/20 10:06 Barium Sulfate (Varibar Thin Liquid powder) 148 gm NOW PRN MC RAD 09/21/20 10:15 09/24/20 10:06 Chlorhexidine Gluconate (Adeline-Hex 2%) 1 applic DAILY@2000 TOPIC 09/21/20 20:00 12/20/20 19:59 Dexamethasone Sodium Phosphate (Decadron 4mg/ml vial) 6 mg DAILY IVP 09/20/20 09:00 09/28/20 09:01 09/21/20 08:24 Enoxaparin Sodium (Lovenox) 40 mg Q12HR SUBQ 09/19/20 21:00 12/18/20 20:59 09/21/20 08:25 Ivermectin (StromectoL) 15 mg ONCE ONCE ORAL 09/21/20 12:30 09/21/20 12:31 Ondansetron HCl (Zofran) 4 mg Q6H PRN ORAL Nausea & Vomiting 09/19/20 08:15 10/19/20 08:14 Pantoprazole (Protonix) 40 mg DAILY ORAL 09/19/20 09:00 10/19/20 08:59 09/21/20 08:24 Vancomycin HCl ([facility] pharmacy to dose) 1 ea DAILY PRN MISC Per rx protocol 09/19/20 08:15 10/19/20 08:14 Vancomycin HCl 1 gm/Dextrose 275 ml @ 183.708 mls/hr Q24H IVPB 09/20/20 10:00 09/25/20 09:59 09/21/20 11:16 Assessment/Plan Assessment/Plan Impression: Covid 19 Pneumonia Hypoxic Respiratory Failure Possible sepsis Elevated Troponin Diabetes Previous Hypertension Recent right ankle fracture, Obesity Plan: Antibiotics/oxygen Remdesivir was not indicated per ID Dexamethasone [employer] Medications Monitor labs monitor cultures monitor for worsening respiratory congestion impression, plan, and exam edited and reviewed in detail care discussed with Reg Sanders MD Sep 21, 2020 11:55
--- NOTE | 2020-09-21 12:29 | NUR ---
NURSE NOTES: daughter landry was notified of floor transfer. contact number was provided.
--- NOTE | 2020-09-21 12:30 | NUR ---
NURSE NOTES: Received pt from ICU. pt is alert, awake and responds verbally. no fever noted. PT coughing x 1; bilateral lungs sounds slightly congested. on venturi mask due to SOB. HOB elevated. denies any chest pain and discomfort. no acute distress noted at this time. call light is within reach.
--- NOTE | 2020-09-21 13:50 | NUR ---
CASE MANAGEMENT:REVIEW 80 YR OLD FEMALE BIBA FROM HOME CC: SOB. SAT 71% ON RA SI: COVID PNA. SEPTIC SHOCK 97.6 100 20 72/32 96% ON 4L/NC WBC+12.5 IS: PLACED ON 15L NON REBREATHER MASK 1L NS BOLUS IV AZITHROMYCIN IV DECADRON IV ROCEPHIN LOVENOX SQ ALBUTEROL INH ASA PO CHEST XRAY RT ANKLE XRAY : TO ICU
--- NOTE | 2020-09-21 13:57 | NUR ---
CASE MANAGEMENT:REVIEW 09/21/20 SI: COVID PNA. SEPSIS. ELEVATED TROPONIN 98.2 52 22 119/99 94% ON VENTURI MASK W/40% FIO2 WBC+11.0 H/H-11.2/33.3 TROPONIN (+) 0.930 IS: IV VANCOMYCIN Q12 IV DECADRON QD LOVENOX SQ Q12 PROTONIX PO QD : TRANSFER FROM ICU TO TELEMETRY [facility]: [facility]
--- NOTE | 2020-09-21 14:55 | Diagnostic Imaging Report ---
Indication: Shortness of breath Technique: One view of the chest Comparison: 09/19/2020 Findings: Infiltrate in the right upper lobe and left lung base appears slightly increased. Extensive infiltrates elsewhere appear unchanged. The heart is borderline enlarged. The pleural spaces remain clear Impression: Slightly worse right upper lobe and left basilar infiltrates
--- NOTE | 2020-09-21 16:35 | General Progress Note ---
Subjective ROS Limited/Unobtainable: No Constitutional: Reports: malaise, weakness HEENT: Reports: no symptoms Cardiovascular: Reports: no symptoms Respiratory: Reports: cough, shortness of breath Gastrointestinal/Abdominal: Reports: no symptoms Genitourinary: Reports: no symptoms Neurologic/Psychiatric: Reports: no symptoms Endocrine: Reports: no symptoms Hematologic/Lymphatic: Reports: anemia Allergies: Coded Allergies: No Known Allergies (Unverified , 09/19/20) All Systems: reviewed and negative except above Subjective no events. bp improved. off pressors. remains on venti mask. more comfortable. Objective Last 24 Hour Vital Signs Date Time Temp Pulse Resp B/P (MAP) Pulse Ox O2 Delivery O2 Flow Rate FiO2 09/21/20 12:00 97.9 66 20 152/72 (98) 96 09/21/20 12:00 66 09/21/20 10:00 55 19 137/72 (93) 95 09/21/20 09:11 51 09/21/20 09:00 56 20 137/54 (81) 92 09/21/20 08:00 57 20 163/53 (89) 94 09/21/20 08:00 3.0 40 09/21/20 08:00 Venturi Mask 3.0 09/21/20 07:00 98.2 52 22 119/99 (106) 95 09/21/20 06:00 60 20 139/52 (81) 93 09/21/20 05:45 139/52 09/21/20 05:00 69 25 140/55 (83) 90 09/21/20 04:51 54 09/21/20 04:00 Venturi Mask 3.0 09/21/20 04:00 98.6 54 19 139/54 (82) 96 09/21/20 04:00 3.0 40 09/21/20 03:00 55 20 140/60 (86) 93 09/21/20 02:00 62 19 147/64 (91) 92 09/21/20 01:00 71 20 131/54 (79) 91 09/21/20 00:00 98.6 58 19 123/47 (72) 95 09/21/20 00:00 Venturi Mask 3.0 09/21/20 00:00 3.0 28 09/20/20 23:37 71 09/20/20 23:37 71 09/20/20 23:00 63 19 134/53 (80) 95 09/20/20 22:00 63 19 139/47 (77) 95 09/20/20 21:00 77 12 138/60 (86) 93 09/20/20 20:00 3.0 28 09/20/20 20:00 Venturi Mask 3.0 09/20/20 20:00 98.2 67 15 135/56 (82) 94 09/20/20 19:57 94 Venturi Mask 40 09/20/20 19:24 61 09/20/20 19:00 77 11 129/49 (75) 95 09/20/20 18:00 67 26 135/53 (80) 95 09/20/20 17:00 67 20 134/54 (80) 96 Intake and Output 09/20/20 09/21/20 19:00 07:00 Intake Total 467.500 ml Balance 467.500 ml Intake IV Total 467.500 ml # Voids 3 1 Laboratory Tests 09/21/20 05:08: White Blood Count 11.0H, Red Blood Count 3.77L, Hemoglobin 11.2L, Hematocrit 33.3L, Mean Corpuscular Volume 88, Mean Corpuscular Hemoglobin 29.7, Mean Corpuscular Hemoglobin Concent 33.7, Red Cell Distribution Width 11.6, Platelet Count 244, Mean Platelet Volume 6.9, Neutrophils (%) (Auto) , Lymphocytes (%) (Auto) , Monocytes (%) (Auto) , Eosinophils (%) (Auto) , Basophils (%) (Auto) , Differential Total Cells Counted 100, Neutrophils % (Manual) 75, Lymphocytes % (Manual) 17L, Monocytes % (Manual) 8, Eosinophils % (Manual) 0, Basophils % (Manual) 0, Band Neutrophils 0, Platelet Estimate Adequate, Platelet Morphology Normal, Red Blood Cell Morphology Normal, Erythrocyte Sedimentation Rate 78H, Prothrombin Time 12.7H, Prothromb Time International Ratio 1.2H, Activated Partial Thromboplast Time 24, Sodium Level 139, Potassium Level 3.9, Chloride Level 104, Carbon Dioxide Level 26, Anion Gap 9, Blood Urea Nitrogen 19H, Creatinine 0.9, Estimat Glomerular Filtration Rate > 60, Glucose Level 100, Calcium Level 8.6, Total Bilirubin 0.8, Aspartate Amino Transf (AST/SGOT) 47H, Alanine Aminotransferase (ALT/SGPT) 56, Alkaline Phosphatase 68, C-Reactive Protein, Quantitative 0.9, Total Protein 6.8, Albumin 2.6L, Globulin 4.2, Albumin/Globulin Ratio 0.6L 09/21/20 08:36: Arterial Blood pH 7.462H, Arterial Blood Partial Pressure CO2 35.8, Arterial Blood Partial Pressure O2 65.2L, Arterial Blood HCO3 25.0, Arterial Blood Oxygen Saturation 92.8L, Arterial Blood Base Excess 1.5, Huey Test Positive 09/21/20 10:00: Vancomycin Level Trough 5.4 Height (Feet): 5 Height (Inches): 3.00 Weight (Pounds): 175 General Appearance: WD/WN Neck: supple Cardiovascular: regular rhythm Respiratory/Chest: lungs clear Abdomen: normal bowel sounds Edema: trace edema Assessment/Plan Problem List: (1) Pneumonia due to COVID-19 virus ICD Codes: U07.1 - COVID-19; J12.82 - Pneumonia due to coronavirus disease 2019 SNOMED: 974973051870284980 (2) Hyperglycemia due to type 2 diabetes mellitus ICD Codes: E11.65 - Type 2 diabetes mellitus with hyperglycemia; R65.21 - Severe sepsis with septic shock SNOMED: 039220871369567, 70556404 Qualifiers: Qualified Codes: E11.65 - Type 2 diabetes mellitus with hyperglycemia (3) Acute respiratory failure with hypoxia ICD Codes: J96.01 - Acute respiratory failure with hypoxia; J12.82 - Pneumonia due to coronavirus disease 2018 SNOMED: 19088079, 805603879 (4) Anemia ICD Codes: D64.9 - Anemia, unspecified SNOMED: 584055521, 059265858 Qualifiers: Qualified Codes: D64.9 - Anemia, unspecified (5) Septic shock ICD Codes: A41.9 - Sepsis, unspecified organism; R65.21 - Severe sepsis with septic shock SNOMED: 21110929, 015895805 Status: stable Assessment/Plan: cont ivf cont decadron iv abx for pna dvt/stress ulcer prophylaxis resp rx wean o2 as able to tele/sdu guarded Wisam Jenkins MD Sep 21, 2020 16:35
--- NOTE | 2020-09-21 17:27 | NUR ---
Speech Pathology Note (Bedside Dysphagia Evaluation) Brief Note: Ms. Henry is a 80 year old female presents with COVID 19 (Symptoms started 3 weeks ago), Trimalleolar [facility]. She admitted [facility] on 09/17/2020 for the same reason apparently discharged to [facility] now to [facility]. She admitted ICU on 09/19/2020 for hypotension required pressor support. Hemodynamic was stabled and transferred to telemetry today. The lab values had improved last 2 days. The CXR is slightly worsening of infiltrate and pt continued to required 5 liter o2 support via VM at this time. Working Diagnosis: 1. COVID 19 with leukocytosis and hypoxemia 2. Trimalleolar Fracture 3. JOSE J Findings: Ms. Enamorado is alert and oriented to 4. Her speech is clear and able to complete sentence per utterance. Her voice is intact. Given her Pureed and thin liquid, she tolerated well without dysphagia, odynophagia or any s.s of aspiration. Interpretation: 1. Functional Swallow 2. Dyspnea with COVID 19 Plan: 1. Mechanical soft diet and thin liquid [place]
--- NOTE | 2020-09-21 19:34 | NUR ---
NURSE HAND-OFF REPORT: Important Events on Shift:transfer from ICU Patient Status: STABLE Diet: [] Pending Orders: [] Pending Results/Labs:[] Pending MD notification:[] Latest Vital Signs: Temperature 97.9 , Pulse 68 , B/P 133 /70 , Respiratory Rate 20 , O2 SAT 96 , Venturi Mask, O2 Flow Rate 3.0 . Vital Sign Comment: [] EKG Rhythm: Sinus Rhythm Rhythm change?: N MD Notified?: - MD Response: Latest Lozada Fall Score: 60 Fall Risk: High Risk Safety Measures: Call light , Bed Alarm Zone 2, Side Rails Side Rails x2, Bed position Low and Locked. Fall Precautions: Yellow Socks Patient Fall Education Report given to Ema.
--- NOTE | 2020-09-21 19:35 | NUR ---
NURSE NOTES: Received report from GIANFRANCO Garnett. Patient is awake in bed at this time. Patient is A/O x4. Mongolian speaking only. On VM 5 L FIO2 40 Saturating 96%. FA 20G patent and flushed running s/l. No erythema and bleeding noted. Bed kept in lowest and locked position. Right Femoral 3 lumen central line noted S/L. Bed kept in lowest and locked position. Side rails up x2. Left lower leg soft cast. Call light within reach. Will monitor.
[2020-09-21] MEDS: Dyna-Hex 2% Top Sol 2oz TOPIC SCH (20:56)
--- NOTE | 2020-09-21 21:00 | NUR ---
NURSE NOTES: Dressing changed on patient right femoral central line.
[2020-09-22] VITALS: BP 150/73
[2020-09-22 04:00] VITALS: BP 147/70
--- NOTE | 2020-09-22 07:05 | NUR ---
NURSE HAND-OFF REPORT: Important Events on Shift: No changes Patient Status: No SOB No pain reported Diet: Regular soft easy chew Pending Orders: Pending Results/Labs: Pending MD notification: Latest Vital Signs: Temperature 97.9 , Pulse 64 , B/P 147 /70 , Respiratory Rate 20 , O2 SAT 96 , Venturi Mask, O2 Flow Rate 5.0 . Vital Sign Comment: EKG Rhythm: Sinus Rhythm Rhythm change?: N MD Notified?: - MD Response: Latest Lozada Fall Score: 60 Fall Risk: High Risk Safety Measures: Call light , Bed Alarm Zone 2, Side Rails Side Rails x2, Bed position Low and Locked. Fall Precautions: Yellow Socks Patient Fall Education Report given to Lisandro MEDEL.
--- NOTE | 2020-09-22 07:36 | NUR ---
NURSE NOTES: Patient received from GIANFRANCO Boo. Patient seen in bed in semi fowlers position [id number]. Patient is under no acute signs of distress and no complain of pain 0/10. The patient is on Venturi mask 5L with 40% O2 and patient oxygen saturation is within normal limits. The patient has a L FA 20G IV that is saline rodney, clean, patent and intact. the patient also has a R femoral triple lumen central line that is clean patent and intact. Patients bed is in lowest position, locked, side rails x3, bed alarm in zone 1 and call light within reach. Patient instructed to press call light for further needs.
[2020-09-22 08:00] VITALS: BP 113/63
--- NOTE | 2020-09-22 08:35 | Pulmonology Progress Note ---
Subjective ROS Limited/Unobtainable: No Constitutional: Denies: fever, chills Gastrointestinal/Abdominal: Reports: nausea, vomiting, diarrhea Musculoskeletal: Denies: pain Allergies: Coded Allergies: No Known Allergies (Unverified , 09/19/20) All Systems: reviewed and negative except above Subjective care noted and reviewed on oxygen transferred to floor cultures and care noted Objective Last 24 Hour Vital Signs Date Time Temp Pulse Resp B/P (MAP) Pulse Ox O2 Delivery O2 Flow Rate FiO2 09/22/20 04:00 97.9 64 20 147/70 (95) 96 09/22/20 03:15 67 09/22/20 00:00 98.5 66 20 150/73 (98) 93 09/21/20 23:00 61 09/21/20 21:00 Venturi Mask 5.0 09/21/20 20:00 99.1 73 20 154/87 (109) 94 09/21/20 19:00 69 09/21/20 16:00 97.9 68 20 133/70 (91) 96 09/21/20 16:00 66 09/21/20 12:00 97.9 66 20 152/72 (98) 96 09/21/20 12:00 66 09/21/20 10:00 55 19 137/72 (93) 95 09/21/20 09:11 51 09/21/20 09:00 56 20 137/54 (81) 92 Intake and Output 09/21/20 09/22/20 19:00 07:00 Intake Total 300 ml Output Total 200 ml Balance -200 ml 300 ml Intake Oral 300 ml Output Urine Total 200 ml # Voids 2 3 Objective deferred due to COVID Laboratory Tests 09/21/20 08:36: Arterial Blood pH 7.462H, Arterial Blood Partial Pressure CO2 35.8, Arterial Blood Partial Pressure O2 65.2L, Arterial Blood HCO3 25.0, Arterial Blood Oxygen Saturation 92.8L, Arterial Blood Base Excess 1.5, Huey Test Positive 09/21/20 10:00: Vancomycin Level Trough 5.4 Current Medications Medications (Trade) Dose Ordered Sig/Aura Route PRN Reason Start Time Stop Time Status Last Admin Dose Admin Acetaminophen (Tylenol) 650 mg Q4H PRN ORAL Mild Pain (Pain Scale 1-3) 09/19/20 08:15 10/19/20 08:14 Acetaminophen (Tylenol) 650 mg Q4H PRN ORAL Temp >100.5 09/19/20 08:45 10/19/20 08:44 Albuterol Sulfate (Proventil MDI) 2 puff Q4H PRN INH Shortness of Breath 09/19/20 14:15 12/18/20 14:14 Barium Sulfate (Varibar Honey) 250 ml NOW PRN MC RAD 09/21/20 10:15 09/24/20 10:06 Barium Sulfate (Varibar [place]) 240 ml NOW PRN MC RAD 09/21/20 10:15 09/24/20 10:06 Barium Sulfate (Varibar Pudding) 230 ml NOW PRN MC RAD 09/21/20 10:15 09/24/20 10:06 Barium Sulfate (Varibar Thin Liquid powder) 148 gm NOW PRN MC RAD 09/21/20 10:15 09/24/20 10:06 Chlorhexidine Gluconate (Adeline-Hex 2%) 1 applic DAILY@2000 TOPIC 09/21/20 20:00 12/20/20 19:59 09/21/20 20:56 Dexamethasone Sodium Phosphate (Decadron 4mg/ml vial) 6 mg DAILY IVP 09/20/20 09:00 09/28/20 09:01 09/21/20 08:24 Enoxaparin Sodium (Lovenox) 40 mg Q12HR SUBQ 09/19/20 21:00 12/18/20 20:59 09/21/20 20:57 Guaifenesin/ Dextromethorphan (Robitussin DM Syrup) 5 ml Q4H PRN ORAL For Cough 09/22/20 08:30 12/21/20 08:29 Ondansetron HCl (Zofran) 4 mg Q6H PRN ORAL Nausea & Vomiting 09/19/20 08:15 10/19/20 08:14 Pantoprazole (Protonix) 40 mg DAILY ORAL 09/19/20 09:00 10/19/20 08:59 09/21/20 08:24 Vancomycin HCl (Vanco pharmacy to dose) 1 ea DAILY PRN MISC Per rx protocol 09/19/20 08:15 10/19/20 08:14 Vancomycin HCl 1 gm/Dextrose 275 ml @ 183.708 mls/hr Q12H IVPB 09/21/20 22:00 09/26/20 21:59 09/21/20 21:01 Assessment/Plan Assessment/Plan Impression: Covid 19 Pneumonia Hypoxic Respiratory Failure Possible sepsis Elevated Troponin Diabetes Previous Hypertension Recent right ankle fracture, Obesity Plan: Antibiotics/oxygen Dexamethasone ERP CONSULTANT Medications Monitor labs monitor cultures monitor imaging monitor for worsening respiratory congestion impression, plan, and exam edited and reviewed in detail care discussed with Reg Sanders MD Sep 22, 2020 08:35
[2020-09-22] MEDS: Enoxaparin 40mg Inj SUBQ SCH ×2 (09:21→21:23)
[2020-09-22] MEDS: guaiFENesin /DM 10ml syrup ORAL PRN ×2 (09:21→15:05)
[2020-09-22] MEDS ORDERED: Tubing IV Secondary IV ONE (09:25)
--- NOTE | 2020-09-22 10:43 | Surgery Progress Note ---
Surgery Progress Note Subjective Additional Comments no acute events improving labs pending micro noted exam stable on diet Objective Last 24 Hour Vital Signs Date Time Temp Pulse Resp B/P (MAP) Pulse Ox O2 Delivery O2 Flow Rate FiO2 09/22/20 08:00 97.7 71 22 113/63 (80) 96 09/22/20 08:00 75 09/22/20 04:00 97.9 64 20 147/70 (95) 96 09/22/20 03:15 67 09/22/20 00:00 98.5 66 20 150/73 (98) 93 09/21/20 23:00 61 09/21/20 21:00 Venturi Mask 5.0 09/21/20 20:00 99.1 73 20 154/87 (109) 94 09/21/20 19:00 69 09/21/20 16:00 97.9 68 20 133/70 (91) 96 09/21/20 16:00 66 09/21/20 12:00 97.9 66 20 152/72 (98) 96 09/21/20 12:00 66 I&O Intake and Output 09/21/20 09/22/20 19:00 07:00 Intake Total 300 ml Output Total 200 ml Balance -200 ml 300 ml Intake Oral 300 ml Output Urine Total 200 ml # Voids 2 3 Dressing: saturated Cardiovascular: RSR Respiratory: decreased breath sounds Abdomen: soft, flat, non-tender, present bowel sounds Extremities: no edema, no tenderness, no cyanosis Plan Problems: (1) Septic shock Assessment & Plan: 80F septic shock, leukocytosis, lactic acidosis, covid prior, pna, ill appearing on oxygen hypoxic hypotensive placed on fluid resuscitation and pressors have been able to wean pressors since now off labs improving lactic acidosis resolving hold on further line for now cont iv fluids fx noted plain films noted plan ortho in future once edema resolve duplex noted cont respiratory support will follow with recs thank you Ms. Henry is a 80 year old female presents with COVID 19 (Symptoms started 3 weeks ago), Trimalleolar fracture BIBA from [facility] on 09/19/2020. She admitted [facility] on 09/17/2020 for the same reason apparently discharged to [facility] now to [facility]. She admitted ICU on 09/19/2020 for hypotension required pressor support. Hemodynamic was stabled and transferred to telemetry today. The lab values had improved last 2 days. The CXR is slightly worsening of infiltrate and pt continued to required 5 liter o2 support via VM at this time. Working Diagnosis: 1. COVID 19 with leukocytosis and hypoxemia 2. Trimalleolar Fracture 3. JOSE J Findings: Ms. Enamorado is alert and oriented to 4. Her speech is clear and able to complete sentence per utterance. Her voice is intact. Given her Pureed and thin liquid, she tolerated well without dysphagia, odynophagia or any s.s of aspiration. Interpretation: 1. Functional Swallow 2. Dyspnea with COVID 19 Plan: 1. Mechanical soft diet and thin liquid Bones/joints: Acute mildly displaced posterior malleolar fracture. Acute minimally displaced lateral malleolus fracture. No ankle mortise widening. No dislocation. Soft tissues: Mild soft tissue swelling. IMPRESSION: 1. Acute mildly displaced posterior malleolar fracture. 2. Acute minimally displaced lateral malleolus fracture. Right deep veins: No DVT in the right common femoral, femoral, proximal deep femoral or popliteal veins. The veins demonstrate normal color flow, are normally compressible, with normal phasic flow and/or augmentation response. The right posterior tibial and anterior tibial veins were not visualized due to overlying cast. Right superficial veins: No thrombus in the visualized right great saphenous vein. ----- Left deep veins: No DVT in the left common femoral, femoral, proximal deep femoral or popliteal veins. The veins demonstrate normal color flow, are normally compressible, with normal phasic flow and/or augmentation response. Left superficial veins: No thrombus in the visualized left great saphenous vein. IMPRESSION: No deep venous thrombosis of the bilateral lower extremities. The right posterior tibial and anterior tibial veins were not visualized due to overlying cast. (2) Anemia (3) Acute respiratory failure with hypoxia (4) Hyperglycemia due to type 2 diabetes mellitus (5) Pneumonia due to COVID-19 virus Assessment & Plan: Lungs: Patchy airspace opacities bilaterally are present in a peripheral predominant distribution. Pleural space: Unremarkable. No pneumothorax. Heart: Unremarkable. No cardiomegaly. Mediastinum: Unremarkable. Bones/joints: Unremarkable. IMPRESSION: Findings of atypical pneumonia. No acute traumatic findings shown by x- ray. [place] White Sep 22, 2020 10:43
[2020-09-22] MEDS: Vancomycin 1gm/D5W 275ml IVPB SCH ×2 (10:50)
--- NOTE | 2020-09-22 11:42 | Infectious Diseases Prog Note ---
Assessment/Plan Assessment/Plan A 1. COVID19 pneumonia 2. diabetes mellitus 3. hypertension 4. obesity 5. Positive blood culture, likely contamination 6 Hypoxemia P 1. Received 1 dose ivermectin 2. continue dexamethasone day 4 3. Discontinue iv vancomycin 4. continue isolation Subjective ROS Limited/Unobtainable: Yes Allergies: Coded Allergies: No Known Allergies (Unverified , 09/19/20) Objective Last 24 Hour Vital Signs Date Time Temp Pulse Resp B/P (MAP) Pulse Ox O2 Delivery O2 Flow Rate FiO2 09/22/20 08:00 97.7 71 22 113/63 (80) 96 09/22/20 08:00 75 09/22/20 04:00 97.9 64 20 147/70 (95) 96 09/22/20 03:15 67 09/22/20 00:00 98.5 66 20 150/73 (98) 93 09/21/20 23:00 61 09/21/20 21:00 Venturi Mask 5.0 09/21/20 20:00 99.1 73 20 154/87 (109) 94 09/21/20 19:00 69 09/21/20 16:00 97.9 68 20 133/70 (91) 96 09/21/20 16:00 66 09/21/20 12:00 97.9 66 20 152/72 (98) 96 09/21/20 12:00 66 Height (Feet): 5 Height (Inches): 3.00 Weight (Pounds): 175 General Appearance: no acute distress HEENT: mucous membranes moist Respiratory/Chest: no respiratory distress, other - oxygen by venturi mask 5 L/Min Cardiovascular: normal rate Abdomen: soft, non tender Extremities: no edema Neurologic/Psychiatric: alert, responsive Current Medications Medications (Trade) Dose Ordered Sig/Aura Route PRN Reason Start Time Stop Time Status Last Admin Dose Admin Acetaminophen (Tylenol) 650 mg Q4H PRN ORAL Mild Pain (Pain Scale 1-3) 09/19/20 08:15 10/19/20 08:14 Acetaminophen (Tylenol) 650 mg Q4H PRN ORAL Temp >100.5 09/19/20 08:45 10/19/20 08:44 Albuterol Sulfate (Proventil MDI) 2 puff Q4H PRN INH Shortness of Breath 09/19/20 14:15 12/18/20 14:14 Barium Sulfate (Varibar Honey) 250 ml NOW PRN MC RAD 09/21/20 10:15 09/24/20 10:06 Barium Sulfate (Varibar [place]) 240 ml NOW PRN MC RAD 09/21/20 10:15 09/24/20 10:06 Barium Sulfate (Varibar Pudding) 230 ml NOW PRN MC RAD 09/21/20 10:15 09/24/20 10:06 Barium Sulfate (Varibar Thin Liquid powder) 148 gm NOW PRN MC RAD 09/21/20 10:15 09/24/20 10:06 Chlorhexidine Gluconate (Adeline-Hex 2%) 1 applic DAILY@2000 TOPIC 09/21/20 20:00 12/20/20 19:59 09/21/20 20:56 Dexamethasone Sodium Phosphate (Decadron 4mg/ml vial) 6 mg DAILY IVP 09/20/20 09:00 09/28/20 09:01 09/22/20 09:20 Enoxaparin Sodium (Lovenox) 40 mg Q12HR SUBQ 09/19/20 21:00 12/18/20 20:59 09/22/20 09:21 Guaifenesin/ Dextromethorphan (Robitussin DM Syrup) 5 ml Q4H PRN ORAL For Cough 09/22/20 08:30 12/21/20 08:29 09/22/20 09:21 Ondansetron HCl (Zofran) 4 mg Q6H PRN ORAL Nausea & Vomiting 09/19/20 08:15 10/19/20 08:14 Pantoprazole (Protonix) 40 mg DAILY ORAL 09/19/20 09:00 10/19/20 08:59 09/22/20 09:19 Vancomycin HCl (Vanco pharmacy to dose) 1 ea DAILY PRN MISC Per rx protocol 09/19/20 08:15 10/19/20 08:14 Vancomycin HCl 1 gm/Dextrose 275 ml @ 183.708 mls/hr Q12H IVPB 09/21/20 22:00 09/26/20 21:59 09/22/20 10:50 Bonilla Whelan MD Sep 22, 2020 11:42
[2020-09-22 12:00] VITALS: BP 152/64
--- NOTE | 2020-09-22 14:12 | NUR ---
CASE MANAGEMENT:REVIEW 09/22/20 SI: COVID PNA. SEPSIS. ELEVATED TROPONIN 97.5 70 20 152/64 95% ON VENTURI MASK W/5L 40% FIO2 NO LABS FOR TODAY IS: IV VANCOMYCIN Q12 IV DECADRON QD LOVENOX SQ Q12 PROTONIX PO QD : TRANSFER FROM ICU TO TELEMETRY D[facility]: [facility] PLAN: WEAN OXYGEN TOLERATED
--- NOTE | 2020-09-22 15:13 | NUR ---
NURSE NOTES: Patient successfully weaned down to 3L Nasal Cannula. Patient was previously on 5L Venturi mask 50% O2 and saturation was at 96%-98%. Now with 3L nasal cannula patient is saturating 96%. No shortness of breath and no acute signs of distress.
[2020-09-22 16:00] VITALS: BP 139/66
--- NOTE | 2020-09-22 17:12 | General Progress Note ---
Subjective ROS Limited/Unobtainable: No Constitutional: Reports: malaise, weakness HEENT: Reports: no symptoms Cardiovascular: Reports: no symptoms Respiratory: Reports: cough, shortness of breath Gastrointestinal/Abdominal: Reports: no symptoms Genitourinary: Reports: no symptoms Neurologic/Psychiatric: Reports: no symptoms Endocrine: Reports: no symptoms Hematologic/Lymphatic: Reports: anemia Allergies: Coded Allergies: No Known Allergies (Unverified , 09/19/20) Subjective no new complaints. stable on nasal cannula now. no fever or chills. decreased sob. Objective Last 24 Hour Vital Signs Date Time Temp Pulse Resp B/P (MAP) Pulse Ox O2 Delivery O2 Flow Rate FiO2 09/22/20 16:00 63 09/22/20 12:00 70 09/22/20 12:00 97.5 64 20 152/64 (93) 95 09/22/20 08:00 97.7 71 22 113/63 (80) 96 09/22/20 08:00 75 09/22/20 04:00 97.9 64 20 147/70 (95) 96 09/22/20 03:15 67 09/22/20 00:00 98.5 66 20 150/73 (98) 93 09/21/20 23:00 61 09/21/20 21:00 Venturi Mask 5.0 09/21/20 20:00 99.1 73 20 154/87 (109) 94 09/21/20 19:00 69 Intake and Output 09/21/20 09/22/20 19:00 07:00 Intake Total 300 ml Output Total 200 ml Balance -200 ml 300 ml Intake Oral 300 ml Output Urine Total 200 ml # Voids 2 3 Height (Feet): 5 Height (Inches): 3.00 Weight (Pounds): 175 General Appearance: WD/WN Cardiovascular: normal rate Respiratory/Chest: lungs clear Abdomen: non tender, soft Edema: no edema noted Arm (L), no edema noted Arm (R), no edema noted Leg (L), no edema noted Leg (R) Neurologic: plastic technician II-XII grossly normal, oriented x 3 Assessment/Plan Problem List: (1) Pneumonia due to COVID-19 virus ICD Codes: U07.1 - COVID-19; J12.82 - Pneumonia due to coronavirus disease 2019 SNOMED: 777476814706543952 (2) Hyperglycemia due to type 2 diabetes mellitus ICD Codes: E11.65 - Type 2 diabetes mellitus with hyperglycemia; R65.21 - Severe sepsis with septic shock SNOMED: 921259808789051, 20291420 Qualifiers: Qualified Codes: E11.65 - Type 2 diabetes mellitus with hyperglycemia (3) Acute respiratory failure with hypoxia ICD Codes: J96.01 - Acute respiratory failure with hypoxia; J12.82 - Pneumonia due to coronavirus disease 2018 SNOMED: 86035737, 636141756 (4) Anemia ICD Codes: D64.9 - Anemia, unspecified SNOMED: 161041284, 936603199 Qualifiers: Qualified Codes: D64.9 - Anemia, unspecified (5) Septic shock ICD Codes: A41.9 - Sepsis, unspecified organism; R65.21 - Severe sepsis with septic shock SNOMED: 67241742, 657921683 Status: stable Assessment/Plan: cont ivf cont decadron iv abx for pna dvt/stress ulcer prophylaxis resp rx wean o2 as able to tele guarded Wisam Jenkins MD Sep 22, 2020 17:12
--- NOTE | 2020-09-22 18:45 | NUR ---
NURSE HAND-OFF REPORT: Important Events on Shift:[Weaned down to 3L NC, ABX] Patient Status: [full code] Diet: [Regular, soft easy chew] Pending Orders: [N/A] Pending Results/Labs:[N/A] Pending MD notification:[N/A] Latest Vital Signs: Temperature 98.8 , Pulse 73 , B/P 139 /66 , Respiratory Rate 20 , O2 SAT 95 , Venturi Mask, O2 Flow Rate 3.0 . Vital Sign Comment: [] EKG Rhythm: Sinus Rhythm Rhythm change?: N MD Notified?: - MD Response: Latest Lozada Fall Score: 60 Fall Risk: High Risk Safety Measures: Call light , Bed Alarm Zone 2, Side Rails Side Rails x2, Bed position Low and Locked. Fall Precautions: Yellow Socks Patient Fall Education Report given to [GIANFRANCO Wiseman].
--- NOTE | 2020-09-22 19:00 | NUR ---
NURSE NOTES: Received report from GIANFRANCO Mcmahon; AOX4, B[place]an speaking; noted comfortable in bed; On 3L/min via NC, in no acute distress; denies any pain nor discomfort; with RLE fx on soft cast; will continue to monitor; With central line on R femoral triple lumen; dressing changed today AM shift, intact and patent; also with peripheral IV site on L wrist 22 gauge s/l, INTACT AND PATENT WELL; call light within reach; bed locked and in low position; side rails x 3; will continue to monitor.
[2020-09-22 20:00] VITALS: BP 128/67
[2020-09-22] MEDS: Dyna-Hex 2% Top Sol 2oz TOPIC SCH (21:07)
[2020-09-23] VITALS: BP 118/67
[2020-09-23 04:00] VITALS: BP 121/69
[2020-09-23 04:06] LABS: BASOPHILS % (AUTO) 0.3 % (0.0-2.0); HEMATOCRIT 36.9 % (37.0-47.0); HEMOGLOBIN 12.8 G/DL (12.0-16.0); LYMPHOCYTES % (AUTO) 16.4 % (20.0-45.0); MEAN CORPUSCULAR VOLUME 87 FL (80-99); MONOCYTES % (AUTO) 9.2 % (1.0-10.0); NEUTROPHILS % (AUTO) 73.1 % (45.0-75.0); PLATELET COUNT 331 K/UL (150-450); RED BLOOD COUNT 4.23 M/UL (4.20-5.40); RED CELL DISTRIBUTION WIDTH 11.8 % (11.6-14.8); WHITE BLOOD COUNT 9.7 K/UL (4.8-10.8)
[2020-09-23 04:21] LABS: ALANINE AMINOTRANSFERASE 54 U/L (12-78); ALBUMIN 2.6 G/DL (3.4-5.0); ALBUMIN/GLOBULIN RATIO 0.6 (1.0-2.7); ALKALINE PHOSPHATASE 71 U/L (46-116); ANION GAP 7 mmol/L (5-15); ASPARTATE AMINO TRANSFERASE 29 U/L (15-37); BILIRUBIN,TOTAL 0.9 MG/DL (0.2-1.0); CALCIUM 8.9 MG/DL (8.5-10.1); CARBON DIOXIDE 28 MMOL/L (21-32); CHLORIDE 102 MMOL/L (98-107); CREATININE 0.7 MG/DL (0.55-1.30); POTASSIUM 3.8 MMOL/L (3.5-5.1); SODIUM 137 MMOL/L (136-145)
[2020-09-23 04:35] LABS: BLOOD UREA NITROGEN 14 mg/dL (7-18)
--- NOTE | 2020-09-23 06:55 | NUR ---
NURSE HAND-OFF REPORT: Important Events on Shift: O2 titrated to 2L/min via NC from 3L/min; pt able to tolerate with O2 sat 97% Patient Status: AOX4, stable Diet: Regular, soft, easy to chew, thin liquids Pending Orders: N Pending Results/Labs: AM labs Pending MD notification: N Latest Vital Signs: Temperature 98.4 , Pulse 61 , B/P 121 /69 , Respiratory Rate 24 , O2 SAT 97 , Venturi Mask, O2 Flow Rate 3.0 . Vital Sign Comment: stable EKG Rhythm: Sinus Rhythm Rhythm change?: N MD Notified?: - MD Response: n Latest Lozada Fall Score: 60 Fall Risk: High Risk Safety Measures: Call light , Bed Alarm Zone 2, Side Rails Side Rails x3, Bed position Low and Locked. Fall Precautions: Yellow Socks Patient Fall Education Report given to GIANFRANCO Christensen.
--- NOTE | 2020-09-23 07:26 | NUR ---
NURSE NOTES: Received report from GIANFRANCO Anthony. Pt is stable and resting in bed sleeping. showing NSR on monitor. on 2LPM NC with no s/s or complaint of acute distress. skin intact. RLE swelling and in soft cast, previous fall at [facility]. R femoral central line noted. LFA 22g SL. Pt bed low and locked, call light in reach and bed alarm on. RADIOLOGIC TECHNOLOGIST bedside setting breakfast for Pt.
[2020-09-23 08:00] VITALS: BP 123/47
--- NOTE | 2020-09-23 08:20 | NUR ---
CASE MANAGEMENT:REVIEW 09/23/20 SI: COVID PNA. SEPSIS. ELEVATED TROPONIN 98.4 61 24 121/69 97% ON 3L/NC ALB-2.6 IS: IV DECADRON QD LOVENOX SQ Q12 PROTONIX PO QD : TRANSFER FROM ICU TO TELEMETRY DCP: [facility] PLAN: WEAN OXYGEN TOLERATED
[2020-09-23] MEDS: Enoxaparin 40mg Inj SUBQ SCH ×2 (08:27→20:34)
--- NOTE | 2020-09-23 11:06 | Infectious Diseases Prog Note ---
Assessment/Plan Assessment/Plan antibiotics : none A 1. covid 19 pneumonia on 2 liters O2 with 100 % saturation s/p ivermectin 2. diabetes mellitus 3. hypertension 4. obesity 5. + blood culture with coag neg staph likely contaminated P 1. continue dexamethasone day 5 2. continue isolation Subjective Constitutional: Denies: fever, chills Respiratory: Reports: shortness of breath - decreased, dry cough - mild Gastrointestinal/Abdominal: Denies: nausea, vomiting, diarrhea Musculoskeletal: Denies: pain Allergies: Coded Allergies: No Known Allergies (Unverified , 09/19/20) Objective Last 24 Hour Vital Signs Date Time Temp Pulse Resp B/P (MAP) Pulse Ox O2 Delivery O2 Flow Rate FiO2 09/23/20 08:37 Nasal Cannula 2.0 09/23/20 08:00 97.7 69 16 123/47 (72) 100 09/23/20 08:00 69 09/23/20 04:00 98.4 61 24 121/69 (86) 97 09/23/20 04:00 61 09/23/20 00:00 97.9 69 24 118/67 (84) 96 09/23/20 00:00 69 09/22/20 21:00 Nasal Cannula 3.0 09/22/20 20:00 63 09/22/20 20:00 98.2 63 24 128/67 (87) 96 09/22/20 16:00 98.8 73 20 139/66 (90) 95 09/22/20 16:00 63 09/22/20 12:00 70 09/22/20 12:00 97.5 64 20 152/64 (93) 95 Height (Feet): 5 Height (Inches): 3.00 Weight (Pounds): 175 Laboratory Tests Test 09/23/20 03:53 09/23/20 09:10 White Blood Count 9.7 K/UL (4.8-10.8) Red Blood Count 4.23 M/UL (4.20-5.40) Hemoglobin 12.8 G/DL (12.0-16.0) Hematocrit 36.9 % (37.0-47.0) L Mean Corpuscular Volume 87 FL (80-99) Mean Corpuscular Hemoglobin 30.1 PG (27.0-31.0) Mean Corpuscular Hemoglobin Concent 34.5 G/DL (32.0-36.0) Red Cell Distribution Width 11.8 % (11.6-14.8) Platelet Count 331 K/UL (150-450) Mean Platelet Volume 6.4 FL (6.5-10.1) L Neutrophils (%) (Auto) 73.1 % (45.0-75.0) Lymphocytes (%) (Auto) 16.4 % (20.0-45.0) L Monocytes (%) (Auto) 9.2 % (1.0-10.0) Eosinophils (%) (Auto) 1.0 % (0.0-3.0) Basophils (%) (Auto) 0.3 % (0.0-2.0) Sodium Level 137 MMOL/L (136-145) Potassium Level 3.8 MMOL/L (3.5-5.1) Chloride Level 102 MMOL/L (98-107) Carbon Dioxide Level 28 MMOL/L (21-32) Anion Gap 7 mmol/L (5-15) Blood Urea Nitrogen 14 mg/dL (7-18) Creatinine 0.7 MG/DL (0.55-1.30) Estimat Glomerular Filtration Rate > 60 mL/min (>60) Glucose Level 105 MG/DL (74-106) Lactic Acid Level 0.90 mmol/L (0.4-2.0) Calcium Level 8.9 MG/DL (8.5-10.1) Total Bilirubin 0.9 MG/DL (0.2-1.0) Aspartate Amino Transf (AST/SGOT) 29 U/L (15-37) Alanine Aminotransferase (ALT/SGPT) 54 U/L (12-78) Alkaline Phosphatase 71 U/L (46-116) Total Protein 7.0 G/DL (6.4-8.2) Albumin 2.6 G/DL (3.4-5.0) L Globulin 4.4 g/dL Albumin/Globulin Ratio 0.6 (1.0-2.7) L Vancomycin Level Trough 8.1 ug/mL (5.0-12.0) Current Medications Medications (Trade) Dose Ordered Sig/Aura Route PRN Reason Start Time Stop Time Status Last Admin Dose Admin Acetaminophen (Tylenol) 650 mg Q4H PRN ORAL Mild Pain (Pain Scale 1-3) 09/19/20 08:15 2/22/21 08:14 Acetaminophen (Tylenol) 650 mg Q4H PRN ORAL Temp >100.5 09/19/20 08:45 10/19/20 08:44 Albuterol Sulfate (Proventil MDI) 2 puff Q4H PRN INH Shortness of Breath 09/19/20 14:15 12/18/20 14:14 Barium Sulfate (Varibar Honey) 250 ml NOW PRN MC RAD 09/21/20 10:15 09/24/20 10:06 Barium Sulfate (Varibar [place]) 240 ml NOW PRN MC RAD 09/21/20 10:15 09/24/20 10:06 Barium Sulfate (Varibar Pudding) 230 ml NOW PRN MC RAD 09/21/20 10:15 09/24/20 10:06 Barium Sulfate (Varibar Thin Liquid powder) 148 gm NOW PRN MC RAD 09/21/20 10:15 09/24/20 10:06 Chlorhexidine Gluconate (Adeline-Hex 2%) 1 applic DAILY@2000 TOPIC 09/21/20 20:00 12/20/20 19:59 09/22/20 21:07 Dexamethasone Sodium Phosphate (Decadron 4mg/ml vial) 6 mg DAILY IVP 09/20/20 09:00 09/28/20 09:01 09/23/20 08:26 Enoxaparin Sodium (Lovenox) 40 mg Q12HR SUBQ 09/19/20 21:00 12/18/20 20:59 09/23/20 08:27 Guaifenesin/ Dextromethorphan (Robitussin DM Syrup) 5 ml Q4H PRN ORAL For Cough 09/22/20 08:30 12/21/20 08:29 09/22/20 15:05 Ondansetron HCl (Zofran) 4 mg Q6H PRN ORAL Nausea & Vomiting 09/19/20 08:15 10/19/20 08:14 Pantoprazole (Protonix) 40 mg DAILY ORAL 09/19/20 09:00 10/19/20 08:59 09/23/20 08:23 Nisha Fuentes MD Sep 23, 2020 11:06
[2020-09-23 11:46] VITALS: BP 132/60
--- NOTE | 2020-09-23 12:50 | NUR ---
NURSE NOTES: Paged Dr Jenkins regarding Pt discharge plan per prior discussion his morning regarding d/c plan. "not sure" will await provider orders. No orders to d/c at this time.
[2020-09-23 16:00] VITALS: BP 132/52
--- NOTE | 2020-09-23 16:15 | General Progress Note ---
Subjective ROS Limited/Unobtainable: No Constitutional: Reports: no symptoms HEENT: Reports: no symptoms Cardiovascular: Reports: no symptoms Respiratory: Reports: cough, shortness of breath Gastrointestinal/Abdominal: Reports: no symptoms Genitourinary: Reports: no symptoms Neurologic/Psychiatric: Reports: no symptoms Endocrine: Reports: no symptoms Hematologic/Lymphatic: Reports: no symptoms Allergies: Coded Allergies: No Known Allergies (Unverified , 09/19/20) All Systems: reviewed and negative except above Subjective Patient has no new complaints. Oxygen saturations remained stable on 2 L nasal cannula. Remains on IV steroids. No chest pain. Objective Last 24 Hour Vital Signs Date Time Temp Pulse Resp B/P (MAP) Pulse Ox O2 Delivery O2 Flow Rate FiO2 09/23/20 16:00 97.7 78 16 132/52 (78) 96 09/23/20 12:00 57 09/23/20 11:46 98.1 72 16 132/60 (84) 100 09/23/20 08:37 Nasal Cannula 2.0 09/23/20 08:00 97.7 69 16 123/47 (72) 100 09/23/20 08:00 69 09/23/20 04:00 98.4 61 24 121/69 (86) 97 09/23/20 04:00 61 09/23/20 00:00 97.9 69 24 118/67 (84) 96 09/23/20 00:00 69 09/22/20 21:00 Nasal Cannula 3.0 09/22/20 20:00 63 09/22/20 20:00 98.2 63 24 128/67 (87) 96 Intake and Output 09/22/20 09/23/20 19:00 07:00 Intake Total 350 ml 300 ml Balance 350 ml 300 ml Intake Oral 350 ml 300 ml # Voids 2 4 Laboratory Tests 09/23/20 03:53: White Blood Count 9.7, Red Blood Count 4.23, Hemoglobin 12.8, Hematocrit 36.9L, Mean Corpuscular Volume 87, Mean Corpuscular Hemoglobin 30.1, Mean Corpuscular Hemoglobin Concent 34.5, Red Cell Distribution Width 11.8, Platelet Count 331, Mean Platelet Volume 6.4L, Neutrophils (%) (Auto) 73.1, Lymphocytes (%) (Auto) 16.4L, Monocytes (%) (Auto) 9.2, Eosinophils (%) (Auto) 1.0, Basophils (%) (Auto) 0.3, Sodium Level 137, Potassium Level 3.8, Chloride Level 102, Carbon Dioxide Level 28, Anion Gap 7, Blood Urea Nitrogen 14, Creatinine 0.7, Estimat Glomerular Filtration Rate > 60, Glucose Level 105, Lactic Acid Level 0.90, Calcium Level 8.9, Total Bilirubin 0.9, Aspartate Amino Transf (AST/SGOT) 29, Alanine Aminotransferase (ALT/SGPT) 54, Alkaline Phosphatase 71, Total Protein 7.0, Albumin 2.6L, Globulin 4.4, Albumin/Globulin Ratio 0.6L 09/23/20 09:10: Vancomycin Level Trough 8.1 Height (Feet): 5 Height (Inches): 3.00 Weight (Pounds): 175 Objective General Appearance: WD/WN Cardiovascular: normal rate Respiratory/Chest: lungs clear Abdomen: non tender, soft Edema: no edema noted Arm (L), no edema noted Arm (R), no edema noted Leg (L), no edema noted Leg (R) Neurologic: cable testers helper II-XII grossly normal, oriented x 3 Assessment/Plan Problem List: (1) Pneumonia due to COVID-19 virus ICD Codes: U07.1 - COVID-19; J12.82 - Pneumonia due to coronavirus disease 2019 SNOMED: 436782775211011244 (2) Hyperglycemia due to type 2 diabetes mellitus ICD Codes: E11.65 - Type 2 diabetes mellitus with hyperglycemia; R65.21 - Severe sepsis with septic shock SNOMED: 485295528286426, 35351727 Qualifiers: Qualified Codes: E11.65 - Type 2 diabetes mellitus with hyperglycemia (3) Acute respiratory failure with hypoxia ICD Codes: J96.01 - Acute respiratory failure with hypoxia; J12.82 - Pneumonia due to coronavirus disease 2019 SNOMED: 14481143, 377940690 (4) Anemia ICD Codes: D64.9 - Anemia, unspecified SNOMED: 597252612, 380091354 Qualifiers: Qualified Codes: D64.9 - Anemia, unspecified (5) Septic shock ICD Codes: A41.9 - Sepsis, unspecified organism; R65.21 - Severe sepsis with septic shock SNOMED: 52619134, 507434205 Status: stable Assessment/Plan: cont current rx cont decadron off iv abx per id dvt/stress ulcer prophylaxis resp rx wean o2 as able improved dc planning tomorrow if stable Wisam Jenkins MD Sep 23, 2020 16:15
--- NOTE | 2020-09-23 16:30 | Surgery Progress Note ---
Surgery Progress Note Subjective Additional Comments eating well labs improved comfortable Objective Last 24 Hour Vital Signs Date Time Temp Pulse Resp B/P (MAP) Pulse Ox O2 Delivery O2 Flow Rate FiO2 09/23/20 16:00 66 09/23/20 16:00 97.7 78 16 132/52 (78) 96 09/23/20 12:00 57 09/23/20 11:46 98.1 72 16 132/60 (84) 100 09/23/20 08:37 Nasal Cannula 2.0 09/23/20 08:00 97.7 69 16 123/47 (72) 100 09/23/20 08:00 69 09/23/20 04:00 98.4 61 24 121/69 (86) 97 09/23/20 04:00 61 09/23/20 00:00 97.9 69 24 118/67 (84) 96 09/23/20 00:00 69 09/22/20 21:00 Nasal Cannula 3.0 09/22/20 20:00 63 09/22/20 20:00 98.2 63 24 128/67 (87) 96 I&O Intake and Output 09/22/20 09/23/20 19:00 07:00 Intake Total 350 ml 300 ml Balance 350 ml 300 ml Intake Oral 350 ml 300 ml # Voids 2 4 Cardiovascular: RSR Respiratory: clear Abdomen: soft, flat, non-tender, present bowel sounds Extremities: no tenderness, no cyanosis Laboratory Tests Test 09/23/20 03:53 09/23/20 09:10 White Blood Count 9.7 K/UL (4.8-10.8) Red Blood Count 4.23 M/UL (4.20-5.40) Hemoglobin 12.8 G/DL (12.0-16.0) Hematocrit 36.9 % (37.0-47.0) L Mean Corpuscular Volume 87 FL (80-99) Mean Corpuscular Hemoglobin 30.1 PG (27.0-31.0) Mean Corpuscular Hemoglobin Concent 34.5 G/DL (32.0-36.0) Red Cell Distribution Width 11.8 % (11.6-14.8) Platelet Count 331 K/UL (150-450) Mean Platelet Volume 6.4 FL (6.5-10.1) L Neutrophils (%) (Auto) 73.1 % (45.0-75.0) Lymphocytes (%) (Auto) 16.4 % (20.0-45.0) L Monocytes (%) (Auto) 9.2 % (1.0-10.0) Eosinophils (%) (Auto) 1.0 % (0.0-3.0) Basophils (%) (Auto) 0.3 % (0.0-2.0) Sodium Level 137 MMOL/L (136-145) Potassium Level 3.8 MMOL/L (3.5-5.1) Chloride Level 102 MMOL/L (98-107) Carbon Dioxide Level 28 MMOL/L (21-32) Anion Gap 7 mmol/L (5-15) Blood Urea Nitrogen 14 mg/dL (7-18) Creatinine 0.7 MG/DL (0.55-1.30) Estimat Glomerular Filtration Rate > 60 mL/min (>60) Glucose Level 105 MG/DL (74-106) Lactic Acid Level 0.90 mmol/L (0.4-2.0) Calcium Level 8.9 MG/DL (8.5-10.1) Total Bilirubin 0.9 MG/DL (0.2-1.0) Aspartate Amino Transf (AST/SGOT) 29 U/L (15-37) Alanine Aminotransferase (ALT/SGPT) 54 U/L (12-78) Alkaline Phosphatase 71 U/L (46-116) Total Protein 7.0 G/DL (6.4-8.2) Albumin 2.6 G/DL (3.4-5.0) L Globulin 4.4 g/dL Albumin/Globulin Ratio 0.6 (1.0-2.7) L Vancomycin Level Trough 8.1 ug/mL (5.0-12.0) Plan Problems: (1) Septic shock Assessment & Plan: 80F septic shock, leukocytosis, lactic acidosis, covid prior, pna, ill appearing on oxygen hypoxic hypotensive placed on fluid resuscitation and pressors have been able to wean pressors since now off labs improving lactic acidosis resolving hold on further line for now cont iv fluids fx noted plain films noted plan ortho in future once edema resolve duplex noted cont respiratory support will follow with recs thank you Ms. Henry is a 80 year old female presents with COVID 19 (Symptoms started 3 weeks ago), Trimalleolar fracture BIB[facility] on 09/19/2020. She admitted [facility] on 09/17/2020 for the same reason apparently discharged to [facility] [place] [facility] admitted ICU on 09/19/2020 for hypotension required pressor support. He modynamic was stabled and transferred to telemetry today. The lab values had improved last 2 days. The CXR is slightly worsening of infiltrate and pt continued to required 5 liter o2 support via VM at this time. Working Diagnosis: 1. COVID 19 with leukocytosis and hypoxemia 2. Trimalleolar Fracture 3. JOSE J Findings: Ms. Enamorado is alert and oriented to 4. Her speech is clear and able to complete sentence per utterance. Her voice is intact. Given her Pureed and thin liquid, she tolerated well without dysphagia, odynophagia or any s.s of aspiration. Interpretation: 1. Functional Swallow 2. Dyspnea with COVID 19 Plan: 1. Mechanical soft diet and thin liquid Bones/joints: Acute mildly displaced posterior malleolar fracture. Acute minimally displaced lateral malleolus fracture. No ankle mortise widening. No dislocation. Soft tissues: Mild soft tissue swelling. IMPRESSION: 1. Acute mildly displaced posterior malleolar fracture. 2. Acute minimally displaced lateral malleolus fracture. Right deep veins: No DVT in the right common femoral, femoral, proximal deep femoral or popliteal veins. The veins demonstrate normal color flow, are normally compressible, with normal phasic flow and/or augmentation response. The right posterior tibial and anterior tibial veins were not visualized due to overlying cast. Right superficial veins: No thrombus in the visualized right great saphenous vein. ----- Left deep veins: No DVT in the left common femoral, femoral, proximal deep femoral or popliteal veins. The veins demonstrate normal color flow, are normally compressible, with normal phasic flow and/or augmentation response. Left superficial veins: No thrombus in the visualized left great saphenous vein. IMPRESSION: No deep venous thrombosis of the bilateral lower extremities. The right posterior tibial and anterior tibial veins were not visualized due to overlying cast. (2) Anemia (3) Acute respiratory failure with hypoxia (4) Hyperglycemia due to type 2 diabetes mellitus (5) Pneumonia due to COVID-19 virus Assessment & Plan: Lungs: Patchy airspace opacities bilaterally are present in a peripheral predominant distribution. Pleural space: Unremarkable. No pneumothorax. Heart: Unremarkable. No cardiomegaly. Mediastinum: Unremarkable. Bones/joints: Unremarkable. IMPRESSION: Findings of atypical pneumonia. No acute traumatic findings shown by x- ray. [place] White Sep 23, 2020 16:30
--- NOTE | 2020-09-23 17:23 | NUR ---
INSURANCE CLINCALS AND REVIEWS FAXED TO [facility] T: [phone] F: [phone]
--- NOTE | 2020-09-23 17:45 | Pulmonology Progress Note ---
Subjective ROS Limited/Unobtainable: Yes Constitutional: Reports: fever, chills Gastrointestinal/Abdominal: Reports: nausea, vomiting; Denies: diarrhea Musculoskeletal: Denies: pain Allergies: Coded Allergies: No Known Allergies (Unverified , 09/19/20) All Systems: reviewed and negative except above Subjective care noted and reviewed on oxygen no distress Objective Last 24 Hour Vital Signs Date Time Temp Pulse Resp B/P (MAP) Pulse Ox O2 Delivery O2 Flow Rate FiO2 09/23/20 16:00 66 09/23/20 16:00 97.7 78 16 132/52 (78) 96 09/23/20 12:00 57 09/23/20 11:46 98.1 72 16 132/60 (84) 100 09/23/20 08:37 Nasal Cannula 2.0 09/23/20 08:00 97.7 69 16 123/47 (72) 100 09/23/20 08:00 69 09/23/20 04:00 98.4 61 24 121/69 (86) 97 09/23/20 04:00 61 09/23/20 00:00 97.9 69 24 118/67 (84) 96 09/23/20 00:00 69 09/22/20 21:00 Nasal Cannula 3.0 09/22/20 20:00 63 09/22/20 20:00 98.2 63 24 128/67 (87) 96 Intake and Output 09/22/20 09/23/20 19:00 07:00 Intake Total 350 ml 300 ml Balance 350 ml 300 ml Intake Oral 350 ml 300 ml # Voids 2 4 Objective deferred due to COVID Laboratory Tests 09/23/20 03:53: White Blood Count 9.7, Red Blood Count 4.23, Hemoglobin 12.8, Hematocrit 36.9L, Mean Corpuscular Volume 87, Mean Corpuscular Hemoglobin 30.1, Mean Corpuscular Hemoglobin Concent 34.5, Red Cell Distribution Width 11.8, Platelet Count 331, Mean Platelet Volume 6.4L, Neutrophils (%) (Auto) 73.1, Lymphocytes (%) (Auto) 16.4L, Monocytes (%) (Auto) 9.2, Eosinophils (%) (Auto) 1.0, Basophils (%) (Auto) 0.3, Sodium Level 137, Potassium Level 3.8, Chloride Level 102, Carbon Dioxide Level 28, Anion Gap 7, Blood Urea Nitrogen 14, Creatinine 0.7, Estimat Glomerular Filtration Rate > 60, Glucose Level 105, Lactic Acid Level 0.90, Calcium Level 8.9, Total Bilirubin 0.9, Aspartate Amino Transf (AST/SGOT) 29, Alanine Aminotransferase (ALT/SGPT) 54, Alkaline Phosphatase 71, Total Protein 7.0, Albumin 2.6L, Globulin 4.4, Albumin/Globulin Ratio 0.6L 09/23/20 09:10: Vancomycin Level Trough 8.1 Current Medications Medications (Trade) Dose Ordered Sig/Aura Route PRN Reason Start Time Stop Time Status Last Admin Dose Admin Acetaminophen (Tylenol) 650 mg Q4H PRN ORAL Mild Pain (Pain Scale 1-3) 09/19/20 08:15 10/19/20 08:14 Acetaminophen (Tylenol) 650 mg Q4H PRN ORAL Temp >100.5 09/19/20 08:45 10/19/20 08:44 Albuterol Sulfate (Proventil MDI) 2 puff Q4H PRN INH Shortness of Breath 09/19/20 14:15 12/18/20 14:14 Barium Sulfate (Varibar Honey) 250 ml NOW PRN MC RAD 09/21/20 10:15 09/24/20 10:06 Barium Sulfate (Varibar [place]) 240 ml NOW PRN MC RAD 09/21/20 10:15 09/24/20 10:06 Barium Sulfate (Varibar Pudding) 230 ml NOW PRN MC RAD 09/21/20 10:15 09/24/20 10:06 Barium Sulfate (Varibar Thin Liquid powder) 148 gm NOW PRN MC RAD 09/21/20 10:15 09/24/20 10:06 Chlorhexidine Gluconate (Adeline-Hex 2%) 1 applic DAILY@2000 TOPIC 09/21/20 20:00 12/20/20 19:59 09/22/20 21:07 Dexamethasone Sodium Phosphate (Decadron 4mg/ml vial) 6 mg DAILY IVP 09/20/20 09:00 09/28/20 09:01 09/23/20 08:26 Enoxaparin Sodium (Lovenox) 40 mg Q12HR SUBQ 09/19/20 21:00 12/18/20 20:59 09/23/20 08:27 Guaifenesin/ Dextromethorphan (Robitussin DM Syrup) 5 ml Q4H PRN ORAL For Cough 09/22/20 08:30 12/21/20 08:29 09/22/20 15:05 Ondansetron HCl (Zofran) 4 mg Q6H PRN ORAL Nausea & Vomiting 09/19/20 08:15 10/19/20 08:14 Pantoprazole (Protonix) 40 mg DAILY ORAL 09/19/20 09:00 10/19/20 08:59 09/23/20 08:23 Assessment/Plan Assessment/Plan Impression: Covid 19 Pneumonia Hypoxic Respiratory Failure Possible sepsis Elevated Troponin Diabetes Previous Hypertension Recent right ankle fracture, Obesity Plan: Antibiotics/oxygen noted improvement monitor cultures monitor imaging monitor for worsening respiratory congestion impression, plan, and exam edited and reviewed in detail care discussed with Reg Sanders MD Sep 23, 2020 17:45
--- NOTE | 2020-09-23 17:45 | NUR ---
NURSE HAND-OFF REPORT: Important Events on Shift: discharge planning 09/24 if pt stable // Patient Status: fc, stable Diet: regular diet, soft easy chew, whole pills ok Pending Orders: pending d/c and removal of central line prior to d/c Pending Results/Labs: Pending MD notification: Latest Vital Signs: Temperature 97.7 , Pulse 66 , B/P 132 /52 , Respiratory Rate 16 , O2 SAT 96 , Venturi Mask, O2 Flow Rate 2.0 . Vital Sign Comment: EKG Rhythm: Sinus Rhythm Rhythm change?: N MD Notified?: - MD Response: Latest Lozada Fall Score: 60 Fall Risk: High Risk Safety Measures: Call light , Bed Alarm Zone 2, Side Rails Side Rails x3, Bed position Low and Locked. Fall Precautions: Yellow Socks Patient Fall Education Report to be given. Addendum: 09/23/20 at 1905 by Amparo Bermeo RN RN Pt is stable, report given to GIANFRANCO Stoll.
[2020-09-23] MEDS: guaiFENesin /DM 10ml syrup ORAL PRN (18:06)
--- NOTE | 2020-09-23 19:21 | NUR ---
NURSE NOTES: Pt. received from GIANFRANCO Christensen. Pt. AAOx4, on 2L NC, breathing even and unlabored on room air, no indications of respiratory distress, no complaints of chest pain at this time. IV noted left forearm 22g saline locked. Right femoral TLC noted, dressing CDI. Bed low and locked, side rails x3 up, bed alarm active, and call light in reach.
[2020-09-23 20:00] VITALS: BP 127/55
[2020-09-23] MEDS: Dyna-Hex 2% Top Sol 2oz TOPIC SCH (20:33)
[2020-09-24] VITALS: BP 142/58
[2020-09-24] MEDS: guaiFENesin /DM 10ml syrup ORAL PRN ×3 (03:57→23:02)
[2020-09-24 04:00] VITALS: BP 131/57
--- NOTE | 2020-09-24 06:48 | NUR ---
NURSE HAND-OFF REPORT: Important Events on Shift:[cough syrup x1 given, pt. able to assist with use of bedside commode. pt. stable on 2L NC.] Patient Status: stable Diet: Regular soft easy chew Pending Orders: na Pending Results/Labs:na Pending MD notification:follow up with possible d/c today Latest Vital Signs: Temperature 97.9 , Pulse 54 , B/P 131 /57 , Respiratory Rate 20 , O2 SAT 95 , Venturi Mask, O2 Flow Rate 2.0 . Vital Sign Comment: stable EKG Rhythm: Sinus Bradycardia Rhythm change?: Y MD Notified?: N - MD Response: Latest Lozada Fall Score: 60 Fall Risk: High Risk Safety Measures: Call light Within Reach, Bed Alarm Zone 1, Side Rails Side Rails x3, Bed position Low and Locked. Fall Precautions: Yellow Socks Yellow Gown Door Sign Patient Fall Education Report given to . Addendum: 09/24/20 at 0711 by Jerman Ngo RN Hand off report given to GIANFRANCO Christensen.
--- NOTE | 2020-09-24 07:10 | NUR ---
NURSE NOTES: Received report from IGANFRANCO Stoll. Pt is stable and resting in bed sleeping. showing NSR on monitor. on 2LPM NC, even chest rise and fall, with no s/s or complaint of acute distress. skin intact. RLE swelling and in soft cast, previous fall at [facility]. R femoral central line noted. LFA 22g SL. Pt bed low and locked, call light in reach and bed alarm on.
[2020-09-24 08:00] VITALS: BP 145/60
--- NOTE | 2020-09-24 08:43 | Pulmonology Progress Note ---
Subjective ROS Limited/Unobtainable: Yes Constitutional: Reports: fever, chills Gastrointestinal/Abdominal: Reports: nausea, vomiting, diarrhea Musculoskeletal: Denies: pain Allergies: Coded Allergies: No Known Allergies (Unverified , 09/19/20) All Systems: reviewed and negative except above Subjective care noted and reviewed on oxygen no distress Objective Last 24 Hour Vital Signs Date Time Temp Pulse Resp B/P (MAP) Pulse Ox O2 Delivery O2 Flow Rate FiO2 09/24/20 08:00 98.0 54 20 145/60 (88) 96 09/24/20 04:00 54 09/24/20 04:00 97.9 54 20 131/57 (81) 95 09/24/20 00:00 98.2 62 20 142/58 (86) 96 09/24/20 00:00 62 09/23/20 21:00 Nasal Cannula 2.0 09/23/20 20:00 97.7 66 20 127/55 (79) 99 09/23/20 20:00 66 09/23/20 16:00 66 09/23/20 16:00 97.7 78 16 132/52 (78) 96 09/23/20 12:00 57 09/23/20 11:46 98.1 72 16 132/60 (84) 100 Intake and Output 09/23/20 09/24/20 19:00 07:00 Intake Total 720 ml Output Total 650 ml Balance 70 ml Intake Oral 720 ml Output Urine Total 650 ml # Voids 2 Objective deferred due to COVID Laboratory Tests 09/23/20 09:10: Vancomycin Level Trough 8.1 Current Medications Medications (Trade) Dose Ordered Sig/Aura Route PRN Reason Start Time Stop Time Status Last Admin Dose Admin Acetaminophen (Tylenol) 650 mg Q4H PRN ORAL Mild Pain (Pain Scale 1-3) 09/19/20 08:15 10/19/20 08:14 Acetaminophen (Tylenol) 650 mg Q4H PRN ORAL Temp >100.5 09/19/20 08:45 10/19/20 08:44 Albuterol Sulfate (Proventil MDI) 2 puff Q4H PRN INH Shortness of Breath 09/19/20 14:15 12/18/20 14:14 Barium Sulfate (Varibar Honey) 250 ml NOW PRN MC RAD 09/21/20 10:15 09/24/20 10:06 Barium Sulfate (Varibar [place]) 240 ml NOW PRN MC RAD 09/21/20 10:15 09/24/20 10:06 Barium Sulfate (Varibar Pudding) 230 ml NOW PRN MC RAD 09/21/20 10:15 09/24/20 10:06 Barium Sulfate (Varibar Thin Liquid powder) 148 gm NOW PRN MC RAD 09/21/20 10:15 09/24/20 10:06 Chlorhexidine Gluconate (Adeline-Hex 2%) 1 applic DAILY@2000 TOPIC 09/21/20 20:00 12/20/20 19:59 09/23/20 20:33 Dexamethasone Sodium Phosphate (Decadron 4mg/ml vial) 6 mg DAILY IVP 09/20/20 09:00 09/28/20 09:01 09/23/20 08:26 Enoxaparin Sodium (Lovenox) 40 mg Q12HR SUBQ 09/19/20 21:00 12/18/20 20:59 09/23/20 20:34 Guaifenesin/ Dextromethorphan (Robitussin DM Syrup) 5 ml Q4H PRN ORAL For Cough 09/22/20 08:30 12/21/20 08:29 09/24/20 03:57 Ondansetron HCl (Zofran) 4 mg Q6H PRN ORAL Nausea & Vomiting 09/19/20 08:15 10/19/20 08:14 Pantoprazole (Protonix) 40 mg DAILY ORAL 09/19/20 09:00 10/19/20 08:59 09/23/20 08:23 Assessment/Plan Assessment/Plan Impression: Covid 19 Pneumonia Hypoxic Respiratory Failure Possible sepsis Elevated Troponin Diabetes Previous Hypertension Recent right ankle fracture, Obesity Plan: Antibiotics/oxygen noted improvement monitor cultures monitor imaging monitor for worsening respiratory congestion impression, plan, and exam edited and reviewed in detail care discussed with Reg Sanders MD Sep 24, 2020 08:43
[2020-09-24] MEDS: Enoxaparin 40mg Inj SUBQ SCH ×2 (09:08→20:11)
--- NOTE | 2020-09-24 10:47 | Infectious Diseases Prog Note ---
Assessment/Plan Assessment/Plan A 1. COVID19 pneumonia 2. diabetes mellitus 3. hypertension 4. obesity 5. Positive blood culture, likely contamination 6 Hypoxemia P 1. Received 1 dose ivermectin 2. continue dexamethasone day 6 3. continue isolation Subjective ROS Limited/Unobtainable: Yes Respiratory: Reports: dry cough; Denies: shortness of breath Allergies: Coded Allergies: No Known Allergies (Unverified , 09/19/20) Objective Last 24 Hour Vital Signs Date Time Temp Pulse Resp B/P (MAP) Pulse Ox O2 Delivery O2 Flow Rate FiO2 09/24/20 09:00 Nasal Cannula 2.0 09/24/20 08:00 52 09/24/20 08:00 98.0 54 20 145/60 (88) 96 09/24/20 04:00 54 09/24/20 04:00 97.9 54 20 131/57 (81) 95 09/24/20 00:00 98.2 62 20 142/58 (86) 96 09/24/20 00:00 62 09/23/20 21:00 Nasal Cannula 2.0 09/23/20 20:00 97.7 66 20 127/55 (79) 99 09/23/20 20:00 66 09/23/20 16:00 66 09/23/20 16:00 97.7 78 16 132/52 (78) 96 09/23/20 12:00 57 09/23/20 11:46 98.1 72 16 132/60 (84) 100 Height (Feet): 5 Height (Inches): 3.00 Weight (Pounds): 175 HEENT: mucous membranes moist Respiratory/Chest: no respiratory distress, other - O2 by nasal cannula, 2 L Cardiovascular: bradycardia Abdomen: soft, non tender Extremities: no edema Neurologic/Psychiatric: alert, responsive Current Medications Medications (Trade) Dose Ordered Sig/Aura Route PRN Reason Start Time Stop Time Status Last Admin Dose Admin Acetaminophen (Tylenol) 650 mg Q4H PRN ORAL Mild Pain (Pain Scale 1-3) 09/19/20 08:15 10/19/20 08:14 Acetaminophen (Tylenol) 650 mg Q4H PRN ORAL Temp >100.5 09/19/20 08:45 10/19/20 08:44 Albuterol Sulfate (Proventil MDI) 2 puff Q4H PRN INH Shortness of Breath 09/19/20 14:15 12/18/20 14:14 Chlorhexidine Gluconate (Adeline-Hex 2%) 1 applic DAILY@2000 TOPIC 09/21/20 20:00 12/20/20 19:59 09/23/20 20:33 Dexamethasone Sodium Phosphate (Decadron 4mg/ml vial) 6 mg DAILY IVP 09/20/20 09:00 09/28/20 09:01 09/24/20 09:03 Enoxaparin Sodium (Lovenox) 40 mg Q12HR SUBQ 09/19/20 21:00 12/18/20 20:59 09/24/20 09:08 Guaifenesin/ Dextromethorphan (Robitussin DM Syrup) 5 ml Q4H PRN ORAL For Cough 09/22/20 08:30 12/21/20 08:29 09/24/20 03:57 Ondansetron HCl (Zofran) 4 mg Q6H PRN ORAL Nausea & Vomiting 09/19/20 08:15 10/19/20 08:14 Pantoprazole (Protonix) 40 mg DAILY ORAL 09/19/20 09:00 10/19/20 08:59 09/24/20 09:03 Bonilla Whelan MD Sep 24, 2020 10:47
[2020-09-24 11:39] VITALS: BP 133/59
--- NOTE | 2020-09-24 11:59 | NUR ---
RD ASSESSMENT & RECOMMENDATIONS SEE CARE ACTIVITY FOR COMPLETE ASSESSMENT DAILY ESTIMATED NEEDS: Needs based on pulmonary/ 59kg abw 25-30 kcals/kg 2483-6621 total kcals 1-1.5 g protein/kg 59-89 g total protein 25-30 mL/kg 9506-7385 total fluid mLs NUTRITION DIAGNOSIS: Altered nutrition related lab values R/T clinical condition as evidenced by elev BG (283 upon adm -> now wnl), pt on Decadron. CURRENT DIET:REGULAR, soft easy chew PO DIET RECOMMENDATIONS: Regular diet as tolerated ADDITIONAL RECOMMENDATIONS: * Standing wt for accurate CBW * Check A1C for eval of glycemic control * Monitor BGs, need for carb controlled diet
--- NOTE | 2020-09-24 14:28 | Surgery Progress Note ---
Surgery Progress Note Subjective Additional Comments afebrile HD stable micro reviewed Oxygen nutrition noted Objective Last 24 Hour Vital Signs Date Time Temp Pulse Resp B/P (MAP) Pulse Ox O2 Delivery O2 Flow Rate FiO2 09/24/20 12:00 66 09/24/20 11:39 97.9 59 18 133/59 (83) 98 09/24/20 09:00 Nasal Cannula 2.0 09/24/20 08:00 52 09/24/20 08:00 98.0 54 20 145/60 (88) 96 09/24/20 04:00 54 09/24/20 04:00 97.9 54 20 131/57 (81) 95 09/24/20 00:00 98.2 62 20 142/58 (86) 96 09/24/20 00:00 62 09/23/20 21:00 Nasal Cannula 2.0 09/23/20 20:00 97.7 66 20 127/55 (79) 99 09/23/20 20:00 66 09/23/20 16:00 66 09/23/20 16:00 97.7 78 16 132/52 (78) 96 I&O Intake and Output 09/23/20 09/24/20 19:00 07:00 Intake Total 720 ml Output Total 650 ml Balance 70 ml Intake Oral 720 ml Output Urine Total 650 ml # Voids 2 Cardiovascular: RSR Respiratory: clear, decreased breath sounds Abdomen: soft, non-tender, present bowel sounds Extremities: no edema, no tenderness, no cyanosis Plan Problems: (1) Septic shock Assessment & Plan: 80F septic shock, leukocytosis, lactic acidosis, covid prior, pna, ill appearing on oxygen hypoxic hypotensive placed on fluid resuscitation and pressors have been able to wean pressors since now off labs improving lactic acidosis resolving hold on further line for now cont iv fluids fx noted plain films noted plan ortho in future once edema resolve duplex noted cont respiratory support will follow with recs thank you Ms. Henry is a 80 year old female presents with COVID 19 (Symptoms started 3 weeks ago), Trimalleolar fracture BIBA from [facility] on 09/19/2020. She admitted [facility] on 09/17/2020 for the same reason apparently discharged to [facility] now to [facility]. She admitted ICU on 09/19/2020 for hypotension required pressor support. Hemodynamic was stabled and transferred to telemetry today. The lab values had improved last 2 days. The CXR is slightly worsening of infiltrate and pt continued to required 5 liter o2 support via VM at this time. Working Diagnosis: 1. COVID 19 with leukocytosis and hypoxemia 2. Trimalleolar Fracture 3. JOSE J Findings: Ms. Enamorado is alert and oriented to 4. Her speech is clear and able to complete sentence per utterance. Her voice is intact. Given her Pureed and thin liquid, she tolerated well without dysphagia, odynophagia or any s.s of aspiration. Interpretation: 1. Functional Swallow 2. Dyspnea with COVID 19 Plan: 1. Mechanical soft diet and thin liquid Bones/joints: Acute mildly displaced posterior malleolar fracture. Acute minimally displaced lateral malleolus fracture. No ankle mortise widening. No dislocation. Soft tissues: Mild soft tissue swelling. IMPRESSION: 1. Acute mildly displaced posterior malleolar fracture. 2. Acute minimally displaced lateral malleolus fracture. Right deep veins: No DVT in the right common femoral, femoral, proximal deep femoral or popliteal veins. The veins demonstrate normal color flow, are normally compressible, with normal phasic flow and/or augmentation response. The right posterior tibial and anterior tibial veins were not visualized due to overlying cast. Right superficial veins: No thrombus in the visualized right great saphenous vein. ----- Left deep veins: No DVT in the left common femoral, femoral, proximal deep femoral or popliteal veins. The veins demonstrate normal color flow, are normally compressible, with normal phasic flow and/or augmentation response. Left superficial veins: No thrombus in the visualized left great saphenous vein. IMPRESSION: No deep venous thrombosis of the bilateral lower extremities. The right posterior tibial and anterior tibial veins were not visualized due to overlying cast. DAILY ESTIMATED NEEDS: Needs based on pulmonary/ 59kg abw 25-30 kcals/kg 0516-3749 total kcals 1-1.5 g protein/kg 59-89 g total protein 25-30 mL/kg 5953-3929 total fluid mLs NUTRITION DIAGNOSIS: Altered nutrition related lab values R/T clinical condition as evidenced by elev BG (283 upon adm -> now wnl), pt on Decadron. CURRENT DIET:REGULAR, soft easy chew PO DIET RECOMMENDATIONS: Regular diet as tolerated ADDITIONAL RECOMMENDATIONS: * Standing wt for accurate CBW * Check A1C for eval of glycemic control * Monitor BGs, need for carb controlled diet (2) Anemia (3) Acute respiratory failure with hypoxia (4) Hyperglycemia due to type 2 diabetes mellitus (5) Pneumonia due to COVID-19 virus Assessment & Plan: Lungs: Patchy airspace opacities bilaterally are present in a peripheral predominant distribution. Pleural space: Unremarkable. No pneumothorax. Heart: Unremarkable. No cardiomegaly. Mediastinum: Unremarkable. Bones/joints: Unremarkable. IMPRESSION: Findings of atypical pneumonia. No acute traumatic findings shown by x- ray. [place] White Sep 24, 2020 14:28
--- NOTE | 2020-09-24 15:17 | NUR ---
CASE MANAGEMENT:REVIEW 09/24/20 SI: COVID PNA. SEPSIS. ELEVATED TROPONIN 97.9 59 18 133/59 98% ON 2L/NC IS: IV DECADRON QD LOVENOX SQ Q12 PROTONIX PO QD : TRANSFER FROM ICU TO TELEMETRY DCP: [facility]:
[2020-09-24 15:43] VITALS: BP 135/57
--- NOTE | 2020-09-24 16:02 | General Progress Note ---
Subjective ROS Limited/Unobtainable: No Constitutional: Reports: malaise, weakness HEENT: Reports: no symptoms Cardiovascular: Reports: no symptoms Respiratory: Reports: cough Gastrointestinal/Abdominal: Reports: no symptoms Allergies: Coded Allergies: No Known Allergies (Unverified , 09/19/20) Subjective Patient has no new complaints. Oxygen saturations remained stable on 2 L nasal cannula. Remains on IV steroids. No chest pain. Objective Last 24 Hour Vital Signs Date Time Temp Pulse Resp B/P (MAP) Pulse Ox O2 Delivery O2 Flow Rate FiO2 09/24/20 15:43 97.9 65 20 135/57 (83) 98 09/24/20 12:00 66 09/24/20 11:39 97.9 59 18 133/59 (83) 98 09/24/20 09:00 Nasal Cannula 2.0 09/24/20 08:00 52 09/24/20 08:00 98.0 54 20 145/60 (88) 96 09/24/20 04:00 54 09/24/20 04:00 97.9 54 20 131/57 (81) 95 09/24/20 00:00 98.2 62 20 142/58 (86) 96 09/24/20 00:00 62 09/23/20 21:00 Nasal Cannula 2.0 09/23/20 20:00 97.7 66 20 127/55 (79) 99 09/23/20 20:00 66 09/23/20 16:00 66 09/23/20 16:00 97.7 78 16 132/52 (78) 96 Intake and Output 09/23/20 09/24/20 19:00 07:00 Intake Total 720 ml Output Total 650 ml Balance 70 ml Intake Oral 720 ml Output Urine Total 650 ml # Voids 2 Height (Feet): 5 Height (Inches): 3.00 Weight (Pounds): 175 Objective General Appearance: WD/WN Cardiovascular: normal rate Respiratory/Chest: lungs clear Abdomen: non tender, soft Edema: no edema noted Arm (L), no edema noted Arm (R), no edema noted Leg (L), no edema noted Leg (R) Neurologic: manager field services II-XII grossly normal, oriented x 3 Assessment/Plan Problem List: (1) Pneumonia due to COVID-19 virus ICD Codes: U07.1 - COVID-19; J12.82 - Pneumonia due to coronavirus disease 2019 SNOMED: 665563314882857957 (2) Hyperglycemia due to type 2 diabetes mellitus ICD Codes: E11.65 - Type 2 diabetes mellitus with hyperglycemia; R65.21 - Severe sepsis with septic shock SNOMED: 374196820967691, 20752550 Qualifiers: Qualified Codes: E11.65 - Type 2 diabetes mellitus with hyperglycemia (3) Acute respiratory failure with hypoxia ICD Codes: J96.01 - Acute respiratory failure with hypoxia; J12.82 - Pneumonia due to coronavirus disease 2018 SNOMED: 18493423, 040491421 (4) Anemia ICD Codes: D64.9 - Anemia, unspecified SNOMED: 509593904, 955437036 Qualifiers: Qualified Codes: D64.9 - Anemia, unspecified (5) Septic shock ICD Codes: A41.9 - Sepsis, unspecified organism; R65.21 - Severe sepsis with septic shock SNOMED: 11507022, 936643177 Status: stable Assessment/Plan: cont current rx cont decadron off iv abx per id dvt/stress ulcer prophylaxis resp rx wean o2 as able improved dc planning tomorrow if stable Wisam Jenkins MD Sep 24, 2020 16:02
--- NOTE | 2020-09-24 16:56 | NUR ---
INSURANCE CLINCALS AND REVIEWS FAXED TO [facility] T: [phone] F: [phone]
--- NOTE | 2020-09-24 18:21 | NUR ---
NURSE HAND-OFF REPORT: Important Events on Shift: Patient Status: fc, stable Diet: regular, soft easy chew, whole pills ok Pending Orders: Pending Results/Labs: Pending MD notification: Latest Vital Signs: Temperature 97.9 , Pulse 61 , B/P 135 /57 , Respiratory Rate 20 , O2 SAT 98 , Venturi Mask, O2 Flow Rate 2.0 . Vital Sign Comment: EKG Rhythm: Sinus Rhythm Rhythm change?: N MD Notified?: N - MD Response: Latest Lozada Fall Score: 60 Fall Risk: High Risk Safety Measures: Call light Within Reach, Bed Alarm Zone 1, Side Rails Side Rails x3, Bed position Low and Locked. Fall Precautions: Yellow Socks Yellow Gown Door Sign Patient Fall Education Report to be given . Addendum: 09/24/20 at 1856 by Amparo Bermeo RN RN Pt is stable, report given to GIANFRANCO Stoll.
--- NOTE | 2020-09-24 19:28 | NUR ---
NURSE NOTES: Pt. received from GIANFRANCO Christensen. Pt. AAOx4, on 2L NC, breathing even and unlabored, no indications of SOB, no indications of chest pain. Right lower extremity in soft cast, elevated. Right femoral TLC dressing CDI. Left forearm 22g saline locked. Bed low and locked, side rails x3 up, bed alarm active, and call light in reach.
[2020-09-24 20:00] VITALS: BP 101/67
[2020-09-24] MEDS: Dyna-Hex 2% Top Sol 2oz TOPIC SCH (20:09)
[2020-09-25] VITALS: BP 125/60
[2020-09-25 04:00] VITALS: BP 126/64
--- NOTE | 2020-09-25 05:11 | Cardiology Report ---
APPROVED REPORT EKG Measurement Heart [id number] MA [id number] <Conclusion> Normal sinus rhythm Possible Left atrial enlargement ST & T wave abnormality, consider inferior ischemia Abnormal ECG
--- NOTE | 2020-09-25 06:49 | NUR ---
NURSE HAND-OFF REPORT: Important Events on Shift:[pt. stable without acute events overnight] Patient Status: stable Diet: regular soft easy chew Pending Orders: na Pending Results/Labs:na Pending MD notification:follow up with possible discharge Latest Vital Signs: Temperature 97.9 , Pulse 53 , B/P 126 /64 , Respiratory Rate 18 , O2 SAT 97 , Venturi Mask, O2 Flow Rate 2.0 . Vital Sign Comment: stable EKG Rhythm: Sinus Bradycardia Rhythm change?: N MD Notified?: N - MD Response: Latest Lozada Fall Score: 60 Fall Risk: High Risk Safety Measures: Call light Within Reach, Bed Alarm Zone 1, Side Rails Side Rails x3, Bed position Low and Locked. Fall Precautions: Yellow Socks Patient Fall Education Report given to . Addendum: 09/25/20 at 0721 by Jerman Ngo RN Hand off given to GIANFRANCO Eugene.
--- NOTE | 2020-09-25 07:19 | NUR ---
CASE MANAGEMENT:REVIEW 09/25/20 SI: COVID PNA. SEPSIS. ELEVATED TROPONIN 97.9 53 18 126/64 96% ON 2L/NC IS: IV DECADRON QD LOVENOX SQ Q12 PROTONIX PO QD : TELEMETRY STATUS DCP: FROM [facility]: DISCHARGE PLANNING
--- NOTE | 2020-09-25 07:25 | NUR ---
DISCHARGE PLANNING CLINCALS FAXED TO [facility] T: [phone] F: [phone] Addendum: 09/25/20 at 1155 by CINDY NEFF LVN LVN ACCEPTED BACK TO ROOM 11A
[2020-09-25 08:00] VITALS: BP 126/63
[2020-09-25] MEDS: Enoxaparin 40mg Inj SUBQ SCH (08:09)
--- NOTE | 2020-09-25 09:05 | Pulmonology Progress Note ---
Subjective ROS Limited/Unobtainable: No Constitutional: Reports: fever, chills Gastrointestinal/Abdominal: Reports: nausea, vomiting, diarrhea Musculoskeletal: Denies: pain Allergies: Coded Allergies: No Known Allergies (Unverified , 09/19/20) All Systems: reviewed and negative except above Subjective care noted and reviewed on oxygen no distress Objective Last 24 Hour Vital Signs Date Time Temp Pulse Resp B/P (MAP) Pulse Ox O2 Delivery O2 Flow Rate FiO2 09/25/20 04:00 53 09/25/20 04:00 97.9 53 18 126/64 (84) 97 09/25/20 00:00 60 09/25/20 00:00 97.8 60 20 125/60 (81) 97 09/24/20 21:00 Nasal Cannula 2.0 09/24/20 20:19 96 Nasal Cannula 2.0 28 09/24/20 20:00 69 09/24/20 20:00 98.5 69 22 101/67 (78) 95 09/24/20 16:00 61 09/24/20 15:43 97.9 65 20 135/57 (83) 98 09/24/20 12:00 66 09/24/20 11:39 97.9 59 18 133/59 (83) 98 Intake and Output 09/24/20 09/25/20 19:00 07:00 Intake Total 360 ml 200 ml Output Total 900 ml 600 ml Balance -540 ml -400 ml Intake Oral 360 ml 200 ml Output Urine Total 900 ml 600 ml # Voids 1 2 Objective deferred due to COVID Current Medications Medications (Trade) Dose Ordered Sig/Aura Route PRN Reason Start Time Stop Time Status Last Admin Dose Admin Acetaminophen (Tylenol) 650 mg Q4H PRN ORAL Mild Pain (Pain Scale 1-3) 09/19/20 08:15 10/19/20 08:14 Acetaminophen (Tylenol) 650 mg Q4H PRN ORAL Temp >100.5 09/19/20 08:45 10/19/20 08:44 Albuterol Sulfate (Proventil MDI) 2 puff Q4H PRN INH Shortness of Breath 09/19/20 14:15 12/18/20 14:14 Chlorhexidine Gluconate (Adeline-Hex 2%) 1 applic DAILY@1999 TOPIC 09/21/20 20:00 12/20/20 19:59 09/24/20 20:09 Dexamethasone Sodium Phosphate (Decadron 4mg/ml vial) 6 mg DAILY IVP 09/20/20 09:00 09/28/20 09:01 09/25/20 08:08 Enoxaparin Sodium (Lovenox) 40 mg Q12HR SUBQ 09/19/20 21:00 12/18/20 20:59 09/25/20 08:09 Guaifenesin/ Dextromethorphan (Robitussin DM Syrup) 5 ml Q4H PRN ORAL For Cough 09/22/20 08:30 12/21/20 08:29 09/24/20 23:02 Ondansetron HCl (Zofran) 4 mg Q6H PRN ORAL Nausea & Vomiting 09/19/20 08:15 10/19/20 08:14 Pantoprazole (Protonix) 40 mg DAILY ORAL 09/19/20 09:00 10/19/20 08:59 09/25/20 08:08 Assessment/Plan Assessment/Plan Impression: Covid 19 Pneumonia Hypoxic Respiratory Failure Possible sepsis Elevated Troponin Diabetes Previous Hypertension Recent right ankle fracture, Obesity Plan: Antibiotics/oxygen noted improvement monitor cultures monitor imaging monitor for worsening respiratory congestion impression, plan, and exam edited and reviewed in detail care discussed with Reg Sanders MD Sep 25, 2020 09:04
--- NOTE | 2020-09-25 10:48 | Infectious Diseases Prog Note ---
Assessment/Plan Assessment/Plan antibiotics : none A 1. covid 19 pneumonia on 2 liters O2 with 97 % saturation s/p ivermectin 2. diabetes mellitus 3. hypertension 4. obesity 5. + blood culture with coag neg staph likely contaminated P 1. continue dexamethasone day 7 2. continue isolation Subjective Constitutional: Denies: fever, chills Respiratory: Reports: shortness of breath - less, dry cough - mild Gastrointestinal/Abdominal: Denies: nausea, vomiting, diarrhea Musculoskeletal: Denies: pain Allergies: Coded Allergies: No Known Allergies (Unverified , 09/19/20) Objective Last 24 Hour Vital Signs Date Time Temp Pulse Resp B/P (MAP) Pulse Ox O2 Delivery O2 Flow Rate FiO2 09/25/20 04:00 53 09/25/20 04:00 97.9 53 18 126/64 (84) 97 09/25/20 00:00 60 09/25/20 00:00 97.8 60 20 125/60 (81) 97 09/24/20 21:00 Nasal Cannula 2.0 09/24/20 20:19 96 Nasal Cannula 2.0 28 09/24/20 20:00 69 09/24/20 20:00 98.5 69 22 101/67 (78) 95 09/24/20 16:00 61 09/24/20 15:43 97.9 65 20 135/57 (83) 98 09/24/20 12:00 66 09/24/20 11:39 97.9 59 18 133/59 (83) 98 Height (Feet): 5 Height (Inches): 3.00 Weight (Pounds): 175 Current Medications Medications (Trade) Dose Ordered Sig/Aura Route PRN Reason Start Time Stop Time Status Last Admin Dose Admin Acetaminophen (Tylenol) 650 mg Q4H PRN ORAL Mild Pain (Pain Scale 1-3) 09/19/20 08:15 10/19/20 08:14 Acetaminophen (Tylenol) 650 mg Q4H PRN ORAL Temp >100.5 09/19/20 08:45 10/19/20 08:44 Albuterol Sulfate (Proventil MDI) 2 puff Q4H PRN INH Shortness of Breath 09/19/20 14:15 12/18/20 14:14 Chlorhexidine Gluconate (Adeline-Hex 2%) 1 applic DAILY@1999 TOPIC 09/21/20 20:00 12/20/20 19:59 09/24/20 20:09 Dexamethasone Sodium Phosphate (Decadron 4mg/ml vial) 6 mg DAILY IVP 09/20/20 09:00 09/28/20 09:01 09/25/20 08:08 Enoxaparin Sodium (Lovenox) 40 mg Q12HR SUBQ 09/19/20 21:00 12/18/20 20:59 09/25/20 08:09 Guaifenesin/ Dextromethorphan (Robitussin DM Syrup) 5 ml Q4H PRN ORAL For Cough 09/22/20 08:30 12/21/20 08:29 09/24/20 23:02 Ondansetron HCl (Zofran) 4 mg Q6H PRN ORAL Nausea & Vomiting 09/19/20 08:15 10/19/20 08:14 Pantoprazole (Protonix) 40 mg DAILY ORAL 09/19/20 09:00 10/19/20 08:59 09/25/20 08:08 Nisha Fuentes MD Sep 25, 2020 10:48
[2020-09-25 12:00] VITALS: BP 133/64
--- NOTE | 2020-09-25 12:25 | NUR ---
*-*DISCHARGE PLANNED*-* PATIENT HOFFMANN BEEN ACCEPTED AND WILL BE DISCHARGED BACK TO: [facility] P: [phone] NURSE TO NURSE REPORT ROOM 11.A LIFETIME AMBULANCE TRANSPORTATION SET FOR 2PM S/W [facility] [id number]. S/W PATIENTS MOTHER, DONNA CASTRO, WHO IS IN AGREEMENT WITH DISCHARGE PLAN.
[2020-09-25] MEDS ORDERED: LOVENOX10 M4 SUBQ (12:53)
[2020-09-25] MEDS ORDERED: DEXAMETHAS10 MG/1 M1 IV (12:55)
[2020-09-25] MEDS ORDERED: ACETAMINOPHEN325 M1 ORAL (12:55)
--- NOTE | 2020-09-25 14:13 | Surgery Progress Note ---
Surgery Progress Note Subjective Additional Comments no acute events comfortable stable no n/v labs noted Objective Last 24 Hour Vital Signs Date Time Temp Pulse Resp B/P (MAP) Pulse Ox O2 Delivery O2 Flow Rate FiO2 09/25/20 12:00 61 09/25/20 12:00 97.9 87 20 133/64 (87) 96 09/25/20 09:00 Nasal Cannula 1.0 09/25/20 08:00 51 09/25/20 08:00 97.9 64 20 126/63 (84) 95 09/25/20 04:00 53 09/25/20 04:00 97.9 53 18 126/64 (84) 97 09/25/20 00:00 60 09/25/20 00:00 97.8 60 20 125/60 (81) 97 09/24/20 21:00 Nasal Cannula 2.0 09/24/20 20:19 96 Nasal Cannula 2.0 28 09/24/20 20:00 69 09/24/20 20:00 98.5 69 22 101/67 (78) 95 09/24/20 16:00 61 09/24/20 15:43 97.9 65 20 135/57 (83) 98 I&O Intake and Output 09/24/20 09/25/20 19:00 07:00 Intake Total 360 ml 200 ml Output Total 900 ml 600 ml Balance -540 ml -400 ml Intake Oral 360 ml 200 ml Output Urine Total 900 ml 600 ml # Voids 1 2 Dressing: other Wound: other Cardiovascular: RSR Respiratory: decreased breath sounds Abdomen: soft, non-tender, present bowel sounds, non-distended Extremities: no tenderness, no cyanosis Plan Problems: (1) Septic shock Assessment & Plan: 80F septic shock, leukocytosis, lactic acidosis, covid prior, pna, ill appearing on oxygen hypoxic hypotensive placed on fluid resuscitation and pressors have been able to wean pressors since now off labs improving lactic acidosis resolving hold on further line for now cont iv fluids fx noted plain films noted plan ortho in future once edema resolve duplex noted cont respiratory support will follow with recs thank you Ms. Henry is a 80 year old female presents with COVID 19 (Symptoms started 3 weeks ago), Trimalleolar fracture BIBA from [facility] on 09/19/2020. She admitted [facility] on 09/17/2020 for the same reason apparently discharged to [facility] now to [facility]. She admitted ICU on 09/19/2020 for hypotension required pressor support. Hemodynamic was stabled and transferred to telemetry today. The lab values had improved last 2 days. The CXR is slightly worsening of infiltrate and pt continued to required 5 liter o2 support via VM at this time. Working Diagnosis: 1. COVID 19 with leukocytosis and hypoxemia 2. Trimalleolar Fracture 3. JOSE J Findings: Ms. Enamorado is alert and oriented to 4. Her speech is clear and able to complete sentence per utterance. Her voice is intact. Given her Pureed and thin liquid, she tolerated well without dysphagia, odynophagia or any s.s of aspiration. Interpretation: 1. Functional Swallow 2. Dyspnea with COVID 19 Plan: 1. Mechanical soft diet and thin liquid Bones/joints: Acute mildly displaced posterior malleolar fracture. Acute minimally displaced lateral malleolus fracture. No ankle mortise widening. No dislocation. Soft tissues: Mild soft tissue swelling. IMPRESSION: 1. Acute mildly displaced posterior malleolar fracture. 2. Acute minimally displaced lateral malleolus fracture. Right deep veins: No DVT in the right common femoral, femoral, proximal deep femoral or popliteal veins. The veins demonstrate normal color flow, are normally compressible, with normal phasic flow and/or augmentation response. The right posterior tibial and anterior tibial veins were not visualized due to overlying cast. Right superficial veins: No thrombus in the visualized right great saphenous vein. ----- Left deep veins: No DVT in the left common femoral, femoral, proximal deep femoral or popliteal veins. The veins demonstrate normal color flow, are normally compressible, with normal phasic flow and/or augmentation response. Left superficial veins: No thrombus in the visualized left great saphenous vein. IMPRESSION: No deep venous thrombosis of the bilateral lower extremities. The right posterior tibial and anterior tibial veins were not visualized due to overlying cast. DAILY ESTIMATED NEEDS: Needs based on pulmonary/ 59kg abw 25-30 kcals/kg 3600-8460 total kcals 1-1.5 g protein/kg 59-89 g total protein 25-30 mL/kg 9477-0542 total fluid mLs NUTRITION DIAGNOSIS: Altered nutrition related lab values R/T clinical condition as evidenced by elev BG (283 upon adm -> now wnl), pt on Decadron. CURRENT DIET:REGULAR, soft easy chew PO DIET RECOMMENDATIONS: Regular diet as tolerated ADDITIONAL RECOMMENDATIONS: * Standing wt for accurate CBW * Check A1C for eval of glycemic control * Monitor BGs, need for carb controlled diet (2) Anemia (3) Acute respiratory failure with hypoxia (4) Hyperglycemia due to type 2 diabetes mellitus (5) Pneumonia due to COVID-19 virus Assessment & Plan: Lungs: Patchy airspace opacities bilaterally are present in a peripheral predominant distribution. Pleural space: Unremarkable. No pneumothorax. Heart: Unremarkable. No cardiomegaly. Mediastinum: Unremarkable. Bones/joints: Unremarkable. IMPRESSION: Findings of atypical pneumonia. No acute traumatic findings shown by x- ray. [place] White Sep 25, 2020 14:13
--- NOTE | 2020-09-25 14:29 | NUR ---
INSURANCE CLINCALS AND REVIEWS FAXED TO [facility] T: [phone] F: [phone]
--- NOTE | 2020-09-25 14:51 | NUR ---
NURSE NOTES: Patient discharged to [facility], AxOx4, on O2 at 1lpm via NC sats 94%, no signs of distress. PIV on left forearm patent and intact. Skin is intact. Soft cast noted on right ankle. R femoral PICC line removed and pressure dressing applied, catheter tip intact, no signs of bleeding. All discharge instructions and med list sent with ambulance personnel. Report given to Angie MEDEL trucking supervisor at [facility]. All belongings accounted for. Pt left via ambulance at 1430. JOHN Mallory notified daughter Sierra of discharge.
[2020-09-25] MEDS ORDERED: Tubing IV Secondary IV ONE (15:21)
[2020-09-25] MEDS ORDERED: NS 275ml ONE (15:21)
--- NOTE | 2020-09-27 14:59 | History and Physical Report ---
DATE OF ADMISSION: 09/19/2020 CHIEF COMPLAINT: Shortness of breath and shock. HISTORY OF PRESENT ILLNESS: The patient is a 80-year-old female. She has a history of COVID and a right ankle fracture, was at a group home facility and then desaturated and became hypotensive. She was transferred to the emergency room, where she was hypoxic. She was placed on a Venti mask. She was hypotensive and started on Levophed. The patient was pancultured and started on broad-spectrum antibiotics. She is now admitted for further evaluation and care. PAST MEDICAL HISTORY: As above. PAST SURGICAL HISTORY: None. CURRENT MEDICATIONS: Reconciled and reviewed. ALLERGIES: None. FAMILY HISTORY: None. SOCIAL HISTORY: There is no known history of tobacco, ethanol, or drugs. REVIEW OF SYSTEMS: Unobtainable as the patient is confused. PHYSICAL EXAMINATION: VITAL SIGNS: Temp 98, pulse 80, respirations 30, blood pressure 152/57. GENERAL: The patient is well developed, in moderate amount of respiratory distress. HEENT: Head is normocephalic, atraumatic. Sclerae anicteric. Oropharynx clear. NECK: Supple. HEART: Regular rate and rhythm. LUNGS: Clear. ABDOMEN: Soft, nontender, and nondistended. EXTREMITIES: cyanosis. LABORATORY DATA: UA was clear. White count was 12, hemoglobin 11, hematocrit 35. INR is 1.5. D-dimer is greater than 35. Venous duplex is negative. Chest x-ray showed bilateral opacities. ASSESSMENT: This is a 80-year-old female with a history of COVID pneumonia, right ankle fracture, admitted with complaints of hypoxemia secondary to worsening COVID pneumonia and shock. PLAN: IV pressors. Aggressive fluid resuscitation. ID consultation. Monitor labs. DVT and stress ulcer prophylaxes. Wisam Jenkins M.D. DR: BURKE JOB#: [id number] CC:
--- NOTE | 2020-09-29 16:33 | Discharge Summary ---
Discharge Summary Discharge Summary _ Date of admission: 09/19/2020 Date of discharge: 09/25/[address] Jenkins History of Present Illness and Brief Hospital Course Ms. Elaine Nunez is a 80-year-old female with history of high blood pressure and recent ankle fracture, who was sent to ED from SNF for evaluation of shortness of breath and hypoxia. Patient reported that she was diagnosed with COVID-19 a week prior to presentation but was symptomatic for 1 week before diagnosis. She reported that she was admitted to [facility] with COVID-19 pneumonia. Patient was hypoxic on arrival and was placed on nonrebreather. Patient was pancultured and started on broad-spectrum antibiotics. Patient was admitted for further evaluation and care. Her right ankle x-ray showed acute mildly displaced posterior malleolar fracture and acute minimally displaced lateral malleolus fracture. She had her right lower extremity in soft cast due to recent history of right ankle fracture. Given hypoxia secondary to COVID-19 pneumonia, patient was started on dexamethasone, antibiotics, and 1 dose of ivermectin. She initially received supplemental oxygen via nonrebreather mask. She was later able to be weaned down on oxygen with Venturi mask and then to nasal cannula. On the day of discharge, patient was medically stable with normal work of breathing on room air. She was alert and oriented x4 with no indication of shortness of breath. Patient was discharged back to snf facility in stable condition. Consultants: Surgery Dr. White Infectious disease Dr. Whelan Pulmonology Dr. Brooks Discharge Condition Improved and stable Final diagnoses COVID-19 pneumonia Diabetes mellitus with hyperglycemia Hypertension Obesity Acute respiratory failure with hypoxia Anemia Septic shock Elevated troponin Recent right ankle fracture I have been assigned to dictate discharge summary for this account. I was not involved in the patient's management Oli Tony Sep 29, 2020 16:33
== END 2020-09-25 15:22 | DRG 871 ==
LOC: EDBD 04:15 → EMR 04:28 → ICU 05:47 → EDBEDREQ 21:07 → 2E 09-21 10:38
DX: A41.89 Other specified sepsis (principal); U07.1 COVID-19; J12.82 Pneumonia due to coronavirus disease 2019; R65.21 Severe sepsis with septic shock; J96.01 Acute respiratory failure with hypoxia; I10 Essential (primary) hypertension; S82.851D Displaced trimalleolar fracture of right lower leg, subsequent encounter for closed fracture with routine healing; X58.XXXD Exposure to other specified factors, subsequent encounter; E11.65 Type 2 diabetes mellitus with hyperglycemia; E66.9 Obesity, unspecified; D64.9 Anemia, unspecified; R74.8 Abnormal levels of other serum enzymes
CPT/HCPCS: 36415; 71045; 80053; 80202; 81003; 82550; 82553; 82728; 82803; 83605; 83615; 83690; 83880; 84484; 85007; 85025; 85379; 85610; 85651; 85730; 86140; 87040; 87081; 87181; 93005; 93970; 94640; 96361; 96365; 96367; 96375; 99291; J7030